=== PATIENT | female | born 1935 | race Caucasian/White ===

== ENCOUNTER 2017-06-04 07:53 | Inpatient (IN) | payer MEDICARE ==
[~2017-06-04] VITALS: Ht 154.9 cm; Wt 77.8 kg
[~2017-06-04 07:53] MED LIST: ALEN70TA5 PO; AMIT100T PO; BUME2TAB PO; CELE200C PO; CEPH-368 PO; CITA40TA5 PO; CLIN150C14 PO; FURO20TA3 PO; HYDR-3237 PO; LORA0.5T PO; MELO15TA24 PO; MULT-717 PO; POTA10TA11 PO; SENN8.6T98 PO; ZOLP5TAB6 PO
[2017-06-04] MEDS ORDERED: ALBUTEROL/IPRATROPIUM 2.5MG/0.5MG, 3 ML ONE ×3 (08:24→18:17)
[2017-06-04] MEDS ORDERED: methylPREDNISolone SOD SUCC 125 MG/2 ML IVP ONE (08:30)
[2017-06-04] MEDS ORDERED: SODIUM CHLORIDE FLUSH 10ML SYR IVF ONE (08:30)
[2017-06-04] MEDS ORDERED: ALBUTEROL/IPRATROPIUM 2.5MG/0.5MG, 3 ML NPPB ONE (08:30)
[2017-06-04 09:02] LABS: HEMATOCRIT 36.1 % (34.6-47.8); HEMOGLOBIN 11.6 g/dL (11.7-16.4); WHITE BLOOD COUNT 5.3 x10^3/uL (3.4-10)
[2017-06-04] MEDS ORDERED: BUME1TAB21 PO (09:08)
[2017-06-04] MEDS ORDERED: GABA300C10 PO (09:08)
[2017-06-04] MEDS ORDERED: DICY10CA3 PO (09:08)
[2017-06-04 09:10] LABS: BLOOD UREA NITROGEN 28 mg/dL (7-18)
[2017-06-04 09:15] LABS: ASPARTATE AMINO TRANSFERASE 28 U/L (15-37)
[2017-06-04] MEDS ORDERED: methylPREDNISolone SOD SUCC 125 MG/2 ML ONE (09:34)
[2017-06-04 11:03] LABS: RAPID INFLUENZA A POSITIVE (Negative)
[2017-06-04 11:04] LABS: RAPID INFLUENZA B Negative (Negative)
[2017-06-04] MEDS ORDERED: OSELTAMIVIR 75 MG CAPSULE PO ONE (12:00)
[2017-06-04] MEDS ORDERED: AZITHROMYCIN 500 MG in SODIUM CHLORIDE 0.9% 250 ML IV SCH (12:30)
[2017-06-04] MEDS ORDERED: hydrALAzine 20 MG/ML, 1ML IVPush PRN (13:00)
[2017-06-04] MEDS ORDERED: ACETAMINOPHEN 325 MG TABLET PO PRN (13:00)
[2017-06-04] MEDS ORDERED: ONDANSETRON 2MG/ML, 2ML IVPush PRN (13:00)
[2017-06-04] MEDS ORDERED: GUAIFENESIN 200 MG TABLET PO SCH (13:00)
[2017-06-04] MEDS: ALBUTEROL/IPRATROPIUM 2.5MG/0.5MG, 3 ML NPPB SCH ×2 (13:40→19:26)
[2017-06-04] MEDS ORDERED: FLUCONAZOLE 200 MG/100 ML 100 ML IV ONE (15:30)
[2017-06-04] MEDS: GUAIFENESIN ER 600 MG TABLET PO SCH ×2 (15:34→19:57)
[2017-06-04] MEDS: SODIUM CHLORIDE 0.9% 1,000 ML IV SCH (15:34)
[2017-06-04] MEDS: BENZONATATE 100 MG CAPSULE PO SCH ×2 (15:34→16:00)
[2017-06-04] MEDS: AZITHROMYCIN 500 MG in SODIUM CHLORIDE 0.9% 250 ML IV SCH (15:35)
[2017-06-04] MEDS: HEPARIN 5,000 UNITS/ML, 1ML SQ SCH (15:35)
[2017-06-04 16:59] VITALS: BP 122/69
[2017-06-04 19:31] VITALS: BP 134/61
[2017-06-04] MEDS: OSELTAMIVIR 75 MG CAPSULE PO SCH (19:57)
[2017-06-04 22:18] LABS: PATH.CAST-FLAG NOT PRESENT; SPERM-FLAG NOT PRESENT; SRC-FLAG NOT PRESENT; XTAL-FLAG NOT PRESENT; YLC-FLAG NOT PRESENT
[2017-06-04] MEDS: HYDROcodone/APAP 5/325 TABLET PO PRN (23:33)
[2017-06-05 01:24] VITALS: BP 128/57
[2017-06-05] MEDS: SODIUM CHLORIDE 0.9% 1,000 ML IV SCH ×2 (05:11→17:07)
[2017-06-05 06:26] LABS: BLOOD UREA NITROGEN 26 mg/dL (7-18)
[2017-06-05 06:30] LABS: ASPARTATE AMINO TRANSFERASE 19 U/L (15-37)
[2017-06-05 06:33] LABS: HEMATOCRIT 31.9 % (34.6-47.8); HEMOGLOBIN 10.3 g/dL (11.7-16.4); WHITE BLOOD COUNT 4.9 x10^3/uL (3.4-10)
[2017-06-05] MEDS: ALBUTEROL/IPRATROPIUM 2.5MG/0.5MG, 3 ML NPPB SCH ×4 (06:44→20:24)
[2017-06-05 07:22] VITALS: BP 150/69
[2017-06-05] MEDS: OSELTAMIVIR 75 MG CAPSULE PO SCH ×2 (09:33→21:22)
[2017-06-05] MEDS: GUAIFENESIN ER 600 MG TABLET PO SCH ×3 (09:33→21:23)
[2017-06-05] MEDS: HEPARIN 5,000 UNITS/ML, 1ML SQ SCH ×3 (09:36→17:01)
[2017-06-05 14:10] VITALS: BP 169/73
[2017-06-05] MEDS: HYDROcodone/APAP 5/325 TABLET PO PRN (17:01)
[2017-06-05] MEDS: ASA/APAP/ CAFFEINE TABLET PO PRN (17:01)
[2017-06-05] MEDS: AZITHROMYCIN 500 MG in SODIUM CHLORIDE 0.9% 250 ML IV SCH (17:01)
[2017-06-05 19:24] VITALS: BP 116/72
[2017-06-06] MEDS: HEPARIN 5,000 UNITS/ML, 1ML SQ SCH ×3 (00:56→16:30)
[2017-06-06] MEDS: ASA/APAP/ CAFFEINE TABLET PO PRN ×3 (00:59→16:30)
[2017-06-06 01:24] VITALS: BP 109/66
[2017-06-06 06:30] VITALS: BP 159/77
[2017-06-06] MEDS: ALBUTEROL/IPRATROPIUM 2.5MG/0.5MG, 3 ML NPPB SCH ×2 (07:00→10:00)
[2017-06-06 07:19] LABS: HEMATOCRIT 31.5 % (34.6-47.8); HEMOGLOBIN 10.3 g/dL (11.7-16.4); WHITE BLOOD COUNT 4.9 x10^3/uL (3.4-10)
[2017-06-06 07:34] LABS: BLOOD UREA NITROGEN 24 mg/dL (7-18)
[2017-06-06] MEDS: OSELTAMIVIR 75 MG CAPSULE PO SCH ×2 (08:16→20:53)
[2017-06-06] MEDS: SODIUM CHLORIDE 0.9% 1,000 ML IV SCH ×2 (08:16→20:53)
[2017-06-06] MEDS: GUAIFENESIN ER 600 MG TABLET PO SCH ×3 (08:16→20:53)
[2017-06-06] MEDS ORDERED: DIPHENHYDRAMINE 50 MG/ML, 1ML IVPush ONE (11:30)
[2017-06-06] MEDS ORDERED: PROCHLORPERAZINE 5 MG/ML, 2ML IV ONE (11:30)
[2017-06-06 12:08] VITALS: BP 183/81
[2017-06-06 14:25] VITALS: BP 148/68
[2017-06-06] MEDS ORDERED: AZITHROMYCIN 500 MG TABLET PO SCH (16:00)
[2017-06-06 18:54] VITALS: BP 159/78
[2017-06-06] MEDS: HYDROcodone/APAP 5/325 TABLET PO PRN (20:53)
[2017-06-07 00:28] VITALS: BP 138/66
[2017-06-07] MEDS: HEPARIN 5,000 UNITS/ML, 1ML SQ SCH ×2 (02:00→08:51)
[2017-06-07] MEDS ORDERED: ALBUTEROL/IPRATROPIUM 2.5MG/0.5MG, 3 ML NPPB PRN (07:00)
[2017-06-07 07:25] VITALS: BP 159/93
[2017-06-07] MEDS: OSELTAMIVIR 75 MG CAPSULE PO SCH (08:51)
[2017-06-07] MEDS: GUAIFENESIN ER 600 MG TABLET PO SCH (08:51)
[2017-06-07] MEDS: SODIUM CHLORIDE 0.9% 1,000 ML IV SCH (09:01)
== END 2017-06-07 11:07 | disposition left against medical advice (07) | DRG 193 ==
LOC: ED 11:03 → EDIP 11:58 → 4WST 14:38
PROVIDERS: ADMIT Internal Medicine; ATTEND Internal Medicine
DX: J10.08 Influenza due to other identified influenza virus with other specified pneumonia (principal); J96.01 Acute respiratory failure with hypoxia; N18.3 Chronic kidney disease, stage 3 (moderate); I12.9 Hypertensive chronic kidney disease with stage 1 through stage 4 chronic kidney disease, or unspecified chronic kidney disease; M81.0 Age-related osteoporosis without current pathological fracture; F32.9 Major depressive disorder, single episode, unspecified; J10.1 Influenza due to other identified influenza virus with other respiratory manifestations; J98.4 Other disorders of lung; Z53.21 Procedure and treatment not carried out due to patient leaving prior to being seen by health care provider; Z82.49 Family history of ischemic heart disease and other diseases of the circulatory system; Z90.49 Acquired absence of other specified parts of digestive tract; Z90.710 Acquired absence of both cervix and uterus; Z98.891 History of uterine scar from previous surgery; Z88.0 Allergy status to penicillin; Z88.6 Allergy status to analgesic agent; Z88.5 Allergy status to narcotic agent
CPT/HCPCS: 36415; 71010; 80048; 80053; 81001; 83605; 83880; 84439; 84443; 85025; 87040; 87086; 87400; 93005; 93306; 94640; 96374; J0456; J1644; J7620; J0360; J0780; J1200; J1450; J2930; J7030; J7050

== ENCOUNTER 2017-10-22 10:47 | Emergency (ER) | payer MEDICARE ==
[~2017-10-22] VITALS: Ht 154.9 cm; Wt 76.5 kg
[~2017-10-22 10:47] MED LIST changes: +BUME1TAB21 PO; +DICY10CA3 PO; +GABA300C10 PO
[2017-10-22 10:49] VITALS: BP 123/75
[2017-10-22 12:00] LABS: BASOPHILS # (AUTO) 0.06 x10^3/uL (0-0.1); BASOPHILS % (AUTO) 1 % (0-1); EOSINOPHILS # (AUTO) 0.61 x10^3/uL (0-0.4); EOSINOPHILS % (AUTO) 10 % (1-7); LYMPHOCYTES # (AUTO) 1.16 x10^3/uL (1-3.4); LYMPHOCYTES % (AUTO) 19 % (22-44); MD NO; MEAN CORPUSCULAR HEMOGLOBIN 25.8 pg (27.0-34.8); MEAN CORPUSCULAR HGB CONC 31.7 g/dL (32.4-35.8); MEAN CORPUSCULAR VOLUME 81.4 fL (80-100); MEAN PLATELET VOLUME 7.8 fL (7.4-10.4); MONOCYTES # (AUTO) 0.54 x10^3/uL (0.2-0.8); MONOCYTES % (AUTO) 9 % (2-9); NEUTROPHILS % (AUTO) 60 % (42-75); PLATELET COUNT 403 x10^3/uL (130-400); RED BLOOD COUNT 4.22 x10^6/uL (3.82-5.3); RED CELL DISTRIBUTION WIDTH 15.7 % (9.6-15.2)
[2017-10-22] MEDS ORDERED: KETOROLAC 30 MG/1 ML IM ONE (12:00)
[2017-10-22 12:13] LABS: ALBUMIN 3.1 g/dL (3.4-5.0); ANION GAP 7 mmol/L (5-15); CALCIUM 8.4 mg/dL (8.5-10.1); CHLORIDE 104 mmol/L (98-107)
[2017-10-22 12:18] LABS: ALANINE AMINOTRANSFERASE 19 U/L (12-78); ALKALINE PHOSPHATASE 93 U/L (45-117); BILIRUBIN,TOTAL 0.4 mg/dL (0.2-1.0); CREATININE 1.06 mg/dL (0.55-1.02); TOTAL PROTEIN 7.1 g/dL (6.4-8.2)
[2017-10-22] MEDS ORDERED: KETOROLAC 30 MG/1 ML ONE (12:30)
[2017-10-23] MEDS ORDERED: BUME2TAB PO (13:02)
[2017-10-23] MEDS ORDERED: CITA40TA12 PO (13:03)
[2017-10-23] MEDS ORDERED: AMIT100T PO (13:04)
[2017-10-23] MEDS ORDERED: CALC-112 PO (13:05)
[2017-10-23] MEDS ORDERED: CALC200T3 PO (13:05)
[2017-10-23] MEDS ORDERED: NAPR220C2 PO (13:06)
[2017-10-23] MEDS ORDERED: DOCU250C62 PO (13:06)
== END 2017-10-22 12:55 | disposition home or self-care (01) ==
LOC: ED 12:49
DX: G44.89 Other headache syndrome (principal); I10 Essential (primary) hypertension; Z90.49 Acquired absence of other specified parts of digestive tract; Z88.0 Allergy status to penicillin; Z88.5 Allergy status to narcotic agent; Z88.6 Allergy status to analgesic agent
CPT/HCPCS: 36415; 70450; 80053; 85025; 96372; 99285; J1885

== ENCOUNTER → 2017-11-29 | Outpatient (CLI) | payer MEDICARE ==
[~2017-11-29] MED LIST changes: +CALC-112 PO; +CALC200T3 PO; +CALC600T4 PO; +CITA40TA12 PO; +DIVA-68 PO; +DIVA500T2 PO; +DOCU250C62 PO; +METH4TAB2 PO; +NAPR220C2 PO; +SUMA6VIA SQ; +SUMA6VIA2 SC
== END ==
LOC: RAD 13:21
PROVIDERS: ATTEND Internal Medicine Critical Care Medicine
DX: Z02.9 Encounter for administrative examinations, unspecified (principal)

== ENCOUNTER → 2018-01-17 | Outpatient (CLI) | payer MEDICARE | END | disposition home or self-care (01) | LOC: PETCFH 08:40 | PROVIDERS: ATTEND Family Medicine | DX: R91.8 Other nonspecific abnormal finding of lung field (principal); K59.00 Constipation, unspecified; C79.89 Secondary malignant neoplasm of other specified sites; C80.1 Malignant (primary) neoplasm, unspecified; Z98.84 Bariatric surgery status | CPT/HCPCS: 74018; 78815; A9552 ==

== ENCOUNTER → 2018-01-18 | Outpatient (CLI) | payer MEDICARE | END | disposition home or self-care (01) | LOC: RAD 14:05 | PROVIDERS: ATTEND Internal Medicine | DX: D50.9 Iron deficiency anemia, unspecified (principal); C79.9 Secondary malignant neoplasm of unspecified site | CPT/HCPCS: 74018 ==

== ENCOUNTER → 2018-02-25 | Outpatient (CLI) | payer MEDICARE ==
[~2018-02-25] MED LIST changes: +DIVA-61 PO; -DIVA-68 PO
[2018-02-25 12:36] LABS: HCT (SEDRATE) 35.8 % (34.6-47.8)
== END | disposition home or self-care (01) ==
LOC: CFH 09:10
PROVIDERS: ATTEND Internal Medicine Critical Care Medicine
DX: J47.9 Bronchiectasis, uncomplicated (principal); R91.8 Other nonspecific abnormal finding of lung field
CPT/HCPCS: 36415; 71250; 82164; 83520; 85651; 86038; 86235; 86256; 86430

== ENCOUNTER → 2018-02-25 | Outpatient (CLI) | payer MEDICARE | END | disposition home or self-care (01) | LOC: LAB 10:15 | PROVIDERS: ATTEND Internal Medicine Critical Care Medicine | DX: Z02.9 Encounter for administrative examinations, unspecified (principal) ==

== ENCOUNTER → 2018-03-27 | Outpatient (CLI) | payer MEDICARE | END | disposition home or self-care (01) | LOC: CVU 12:21 | PROVIDERS: ATTEND Nurse Practitioner Family | DX: I07.1 Rheumatic tricuspid insufficiency (principal); I34.8 Other nonrheumatic mitral valve disorders; I35.8 Other nonrheumatic aortic valve disorders; J96.11 Chronic respiratory failure with hypoxia | CPT/HCPCS: 93306 ==

== ENCOUNTER → 2018-04-11 | Outpatient (CLI) | payer MEDICARE | END | disposition home or self-care (01) | LOC: RAD 09:32 | PROVIDERS: ATTEND Nurse Practitioner Family | DX: R13.10 Dysphagia, unspecified (principal) | CPT/HCPCS: 74230; 92611; G8996; G8997; G8998 ==

== ENCOUNTER → 2018-05-03 | Outpatient (CLI) | payer MEDICARE ==
[2018-05-03 11:16] LABS: CHOL/HDL RATIO 2.6; CHOLESTEROL, TOTAL 230 mg/dL (140-239); CREATININE 1.38 mg/dL (0.55-1.02); HDL CHOL % 38 % (28-40); HDL CHOLESTEROL (DIRECT) 87 mg/dL (40-60); LDL CHOLESTEROL,CALCULATED 132 mg/dL (54-169); LDL/HDL RATIO 1.5 (0.5-3.0); TRIGLYCERIDES 56 mg/dL (50-200); VLDL CHOLESTEROL 11 mg/dL (0-25)
== END | disposition home or self-care (01) ==
LOC: LAB 10:32
PROVIDERS: ATTEND Internal Medicine Interventional Cardiology
DX: I10 Essential (primary) hypertension (principal); E78.5 Hyperlipidemia, unspecified
CPT/HCPCS: 36415; 80061; 82565; 84520

== ENCOUNTER 2018-06-24 05:24 | Emergency (ER) | payer MEDICARE ==
[~2018-06-24] VITALS: Ht 152.4 cm; Wt 77.0 kg
[2018-06-24] MEDS ORDERED: MELO15TA24 PO (05:45)
[2018-06-24] MEDS ORDERED: norco (05:45)
[2018-06-24] MEDS ORDERED: NAPR-685 PO (05:45)
[2018-06-24] MEDS ORDERED: BACITRACIN ZINC OINT 500U/GM, 0.9 GM ONE (05:52)
[2018-06-24] MEDS ORDERED: DIPH,PERTUSS(ACELL),TET VAC/PF 0.5 ML IM-VACC ONE ×2 (05:53→06:00)
[2018-06-24] MEDS ORDERED: LIDODERM 5% PATCH TD ONE (06:00)
[2018-06-24] MEDS ORDERED: BACITRACIN ZINC OINT 500U/GM, 0.9 GM TP ONE (06:00)
[2018-06-24 07:02] VITALS: BP 150/69
== END 2018-06-24 08:07 | disposition home or self-care (01) ==
LOC: ED 05:59
DX: B02.9 Zoster without complications (principal); R91.1 Solitary pulmonary nodule; J44.9 Chronic obstructive pulmonary disease, unspecified; I11.9 Hypertensive heart disease without heart failure; Z99.81 Dependence on supplemental oxygen; Z88.6 Allergy status to analgesic agent; Z88.5 Allergy status to narcotic agent; Z88.0 Allergy status to penicillin; Z88.1 Allergy status to other antibiotic agents; Z79.899 Other long term (current) drug therapy; Z90.710 Acquired absence of both cervix and uterus; Z90.49 Acquired absence of other specified parts of digestive tract
CPT/HCPCS: 71046; 90471; 90715

== ENCOUNTER 2018-11-18 12:06 | Emergency (ER) | payer MEDICARE ==
[~2018-11-18] VITALS: Ht 124.5 cm; Wt 69.5 kg
[~2018-11-18 12:06] MED LIST changes: -ALEN70TA5 PO; +ALEN70TA6 PO; +NAPR-685 PO; +norco
[2018-11-18 12:32] VITALS: BP 144/52
== END 2018-11-18 14:11 | disposition home or self-care (01) ==
LOC: ED 14:05
DX: S61.210A Laceration without foreign body of right index finger without damage to nail, initial encounter (principal); S16.1XXA Strain of muscle, fascia and tendon at neck level, initial encounter; S09.90XA Unspecified injury of head, initial encounter; J44.9 Chronic obstructive pulmonary disease, unspecified; F17.210 Nicotine dependence, cigarettes, uncomplicated; Z85.01 Personal history of malignant neoplasm of esophagus; W01.0XXA Fall on same level from slipping, tripping and stumbling without subsequent striking against object, initial encounter; Y93.89 Activity, other specified; Y92.009 Unspecified place in unspecified non-institutional (private) residence as the place of occurrence of the external cause; Y99.8 Other external cause status
CPT/HCPCS: 70450; 72125; 99284

== ENCOUNTER 2019-05-26 13:54 | Inpatient (IN) | payer MEDICARE ==
[~2019-05-26] VITALS: Ht 154.9 cm; Wt 81.6 kg
[~2019-05-26 13:54] MED LIST changes: -BUME2TAB PO; +BUME2TAB3 PO
[2019-05-26] MEDS ORDERED: ATOR-2 PO (14:17)
[2019-05-26] MEDS ORDERED: CARV12.52 PO (14:17)
[2019-05-26] MEDS ORDERED: POTA20TA14 PO (14:17)
[2019-05-26] MEDS ORDERED: ALEN70TA6 PO (14:17)
[2019-05-26] MEDS ORDERED: HYDR-3237 PO (14:17)
[2019-05-26] MEDS ORDERED: ASPI-496 PO (14:17)
[2019-05-26] MEDS ORDERED: DILT-8 PO (14:17)
--- NOTE | 2019-05-26 14:38 | NUR ---
p tto ed for ble swelling x3 days. pt denies cp or pressure. recently diagnosed with "new hear condition" but cannot remember what it is called. pt connected to all monitors. afib 110s-140s. all other vss on baseline home o2 3lnc. no need expressed. Dr. Costa to bs for assessment. plan for dilt gtt and admit. iv established and labs drawn. awaiting results.
[2019-05-26] MEDS ORDERED: DILTIAZEM 5 MG/ML, 5ML ONE (14:48)
[2019-05-26] MEDS ORDERED: DILTIAZEM 5 MG/ML, 5ML IV ONE (15:00)
[2019-05-26] MEDS ORDERED: SODIUM CHLORIDE FLUSH 10ML SYR IVF ONE (15:00)
[2019-05-26] MEDS: DILTIAZEM 125 MG in SODIUM CHLORIDE 0.9% 100 ML IV SCH ×2 (15:03→19:24)
--- NOTE | 2019-05-26 15:05 | NUR ---
pt medicated per mar. hr improving. vss. no needs expressed. awaiting further orders.
[2019-05-26 15:08] LABS: ALANINE AMINOTRANSFERASE 59 U/L (12-78); ALBUMIN 2.7 g/dL (3.4-5.0); ANION GAP 1 mmol/L (5-15); CALCIUM 8.8 mg/dL (8.5-10.1); CHLORIDE 103 mmol/L (98-107); CREATININE 1.23 mg/dL (0.55-1.02)
[2019-05-26 15:11] LABS: BASOPHILS # (AUTO) 0.05 x10^3/uL (0-0.1); BASOPHILS % (AUTO) 1 % (0-1); EOSINOPHILS # (AUTO) 0.59 x10^3/uL (0-0.4); EOSINOPHILS % (AUTO) 7 % (1-7); LYMPHOCYTES # (AUTO) 1.03 x10^3/uL (1-3.4); LYMPHOCYTES % (AUTO) 13 % (22-44); MD NO; MEAN CORPUSCULAR HEMOGLOBIN 31.9 pg (27.0-34.8); MEAN CORPUSCULAR HGB CONC 31.7 g/dL (32.4-35.8); MEAN CORPUSCULAR VOLUME 100.5 fL (80-100); MEAN PLATELET VOLUME 8.7 fL (7.4-10.4); MONOCYTES # (AUTO) 0.62 x10^3/uL (0.2-0.8); MONOCYTES % (AUTO) 8 % (2-9); NEUTROPHILS # (AUTO) 5.72 x10^3/uL (1.8-6.8); NEUTROPHILS % (AUTO) 71 % (42-75); PLATELET COUNT 332 x10^3/uL (130-400); RED BLOOD COUNT 3.99 x10^6/uL (3.82-5.3); RED CELL DISTRIBUTION WIDTH 15.2 % (9.6-15.2)
[2019-05-26 15:23] LABS: BILIRUBIN,TOTAL 0.5 mg/dL (0.2-1.0)
--- NOTE | 2019-05-26 15:23 | NUR ---
PUREWICK PLACED FOR PT COMFORT. PT TOLERATED WELL AND IS THANKFUL. VSS. NO NEEDS EXPRESSED. CALL LIGHT WITHIN REACH.
[2019-05-26 15:24] LABS: ALKALINE PHOSPHATASE 155 U/L (45-117); TOTAL PROTEIN 6.8 g/dL (6.4-8.2); TROPONIN I < 0.015 ng/mL (0.000-0.045)
--- NOTE | 2019-05-26 15:26 | NUR ---
ALL RESULTS BACK AT THIS TIME. CHART UP FOR RECHECK.
--- NOTE | 2019-05-26 15:41 | NUR ---
PT/INR NOT RUNNING AT THIS TIME. LAB CALLED AND WILL BEGIN RUNNING SAMPLE SOON POSSIBLE. DR. ERNIQUEZ NOTIFIED.
[2019-05-26 15:51] LABS: INTERNATIONAL NORMALIZED RATIO 1.14 (0.93-1.1); PROTHROMBIN TIME 11.9 Seconds (9.6-11.5)
[2019-05-26] MEDS ORDERED: FUROSEMIDE 40 MG/4 ML ONE (16:04)
--- NOTE | 2019-05-26 16:10 | NUR ---
PT MEDICATED PER AUG. DR. GROVER TO BS FOR ASSESSMENT. PLAN TO ADMIT TELE.
[2019-05-26] MEDS ORDERED: ONDANSETRON 2MG/ML, 2ML IVPush PRN (16:30)
[2019-05-26] MEDS ORDERED: NITROGLYCERIN 0.4 MG/SPRAY SL PRN (16:30)
[2019-05-26] MEDS ORDERED: ONDANSETRON ODT 4 MG PO PRN (16:30)
[2019-05-26] MEDS ORDERED: NITROGLYCERIN 0.4 MG BOTTLE (25 TABS) SL PRN (16:30)
[2019-05-26] MEDS ORDERED: hydrALAzine 20 MG/ML, 1ML IVPush PRN (16:30)
[2019-05-26] MEDS ORDERED: HYDROmorphone 2 MG/ML, 1ML IVPush PRN (16:30)
[2019-05-26] MEDS ORDERED: FUROSEMIDE 40 MG/4 ML IV ONE (16:30)
--- NOTE | 2019-05-26 18:07 | NUR ---
REPORT TO LOUIS BHARDWAJ. PT READY FOR TRANSPORT.
[2019-05-26] MEDS ORDERED: DILTIAZEM 125 MG in SODIUM CHLORIDE 0.9% 100 ML IV SCH (18:30)
[2019-05-26 18:43] VITALS: BP 117/75
[2019-05-26] MEDS ORDERED: AMITRIPTYLINE 50 MG TABLET ONE (19:39)
[2019-05-26] MEDS: FUROSEMIDE 40 MG/4 ML IV SCH (20:00)
[2019-05-26] MEDS: HEPARIN 5,000 UNITS/ML, 1ML SQ SCH (20:00)
[2019-05-26] MEDS: CARVEDILOL 12.5 MG TABLET PO SCH (20:01)
[2019-05-26] MEDS: ZOLPIDEM 5MG TABLET PO SCH (20:01)
[2019-05-26] MEDS: ATORVASTATIN 80 MG TABLET PO SCH (20:01)
[2019-05-26] MEDS ORDERED: AMITRIPTYLINE 100 MG TABLET PO SCH (21:00)
[2019-05-26] MEDS: GABAPENTIN 100 MG CAPSULE PO SCH (21:05)
[2019-05-26 22:50] LABS: TROPONIN I < 0.015 ng/mL (0.000-0.045)
[2019-05-27 02:31] VITALS: BP 99/63
[2019-05-27] MEDS: HEPARIN 5,000 UNITS/ML, 1ML SQ SCH ×3 (03:43→20:50)
[2019-05-27] MEDS: ACETAMINOPHEN 325 MG TABLET PO PRN ×3 (03:52→19:29)
[2019-05-27 06:16] LABS: ANION GAP 4 mmol/L (5-15); CALCIUM 8.1 mg/dL (8.5-10.1); CHLORIDE 104 mmol/L (98-107); CREATININE 1.01 mg/dL (0.55-1.02)
[2019-05-27 06:21] LABS: TROPONIN I < 0.015 ng/mL (0.000-0.045)
[2019-05-27 06:31] LABS: BASOPHILS # (AUTO) 0.04 x10^3/uL (0-0.1); BASOPHILS % (AUTO) 1 % (0-1); EOSINOPHILS # (AUTO) 0.64 x10^3/uL (0-0.4); EOSINOPHILS % (AUTO) 9 % (1-7); LYMPHOCYTES # (AUTO) 1.18 x10^3/uL (1-3.4); LYMPHOCYTES % (AUTO) 16 % (22-44); MD NO; MEAN CORPUSCULAR HEMOGLOBIN 31.8 pg (27.0-34.8); MEAN CORPUSCULAR HGB CONC 31.8 g/dL (32.4-35.8); MEAN CORPUSCULAR VOLUME 100.2 fL (80-100); MEAN PLATELET VOLUME 8.5 fL (7.4-10.4); MONOCYTES # (AUTO) 0.81 x10^3/uL (0.2-0.8); MONOCYTES % (AUTO) 11 % (2-9); NEUTROPHILS % (AUTO) 65 % (42-75); PLATELET COUNT 277 x10^3/uL (130-400); RED BLOOD COUNT 3.32 x10^6/uL (3.82-5.3); RED CELL DISTRIBUTION WIDTH 14.9 % (9.6-15.2)
[2019-05-27 06:45] VITALS: BP 99/66
[2019-05-27] MEDS ORDERED: ASPIRIN 81 MG TABLET EC PO SCH (09:00)
[2019-05-27] MEDS ORDERED: DILTIAZEM 120 MG CAP.ER.24H PO SCH (09:00)
[2019-05-27] MEDS: FUROSEMIDE 40 MG/4 ML IV SCH ×3 (09:53→20:51)
[2019-05-27] MEDS: CARVEDILOL 12.5 MG TABLET PO SCH ×2 (09:53→20:50)
[2019-05-27] MEDS: GABAPENTIN 100 MG CAPSULE PO SCH ×2 (09:54→20:50)
[2019-05-27] MEDS: CITALOPRAM 20 MG TABLET PO SCH (09:54)
[2019-05-27] MEDS: ASPIRIN 325 MG TABLET EC PO SCH (09:54)
[2019-05-27] MEDS: POTASSIUM CHLORIDE 20 MEQ TAB.ER.PRT PO SCH (11:52)
[2019-05-27 14:46] VITALS: BP 111/74
[2019-05-27 19:34] VITALS: BP 117/73
[2019-05-27] MEDS: AMITRIPTYLINE 50 MG TABLET PO SCH (20:50)
[2019-05-27] MEDS: ATORVASTATIN 80 MG TABLET PO SCH (20:50)
[2019-05-27] MEDS: ZOLPIDEM 5MG TABLET PO SCH (20:50)
[2019-05-28 00:39] VITALS: BP 104/72
[2019-05-28] MEDS: ACETAMINOPHEN 325 MG TABLET PO PRN (01:30)
[2019-05-28] MEDS: HEPARIN 5,000 UNITS/ML, 1ML SQ SCH ×3 (04:34→20:51)
[2019-05-28 08:13] VITALS: BP 105/62
[2019-05-28 08:27] LABS: BASOPHILS # (AUTO) 0.01 x10^3/uL (0-0.1); BASOPHILS % (AUTO) 0 % (0-1); EOSINOPHILS # (AUTO) 0.44 x10^3/uL (0-0.4); EOSINOPHILS % (AUTO) 6 % (1-7); LYMPHOCYTES # (AUTO) 0.73 x10^3/uL (1-3.4); LYMPHOCYTES % (AUTO) 9 % (22-44); MD NO; MEAN CORPUSCULAR HEMOGLOBIN 31.5 pg (27.0-34.8); MEAN CORPUSCULAR HGB CONC 31.9 g/dL (32.4-35.8); MEAN CORPUSCULAR VOLUME 98.8 fL (80-100); MEAN PLATELET VOLUME 8.2 fL (7.4-10.4); MONOCYTES % (AUTO) 10 % (2-9); NEUTROPHILS # (AUTO) 6.13 x10^3/uL (1.8-6.8); NEUTROPHILS % (AUTO) 76 % (42-75); PLATELET COUNT 277 x10^3/uL (130-400); RED BLOOD COUNT 3.61 x10^6/uL (3.82-5.3); RED CELL DISTRIBUTION WIDTH 14.8 % (9.6-15.2)
[2019-05-28 08:38] LABS: ANION GAP 4 mmol/L (5-15); CALCIUM 8.3 mg/dL (8.5-10.1); CHLORIDE 103 mmol/L (98-107)
[2019-05-28 08:39] LABS: CREATININE 0.99 mg/dL (0.55-1.02)
[2019-05-28] MEDS: GABAPENTIN 100 MG CAPSULE PO SCH ×2 (09:04→20:50)
[2019-05-28] MEDS: CARVEDILOL 12.5 MG TABLET PO SCH ×2 (09:04→20:51)
[2019-05-28] MEDS: ASPIRIN 325 MG TABLET EC PO SCH (09:04)
[2019-05-28] MEDS: POTASSIUM CHLORIDE 20 MEQ TAB.ER.PRT PO SCH (09:04)
[2019-05-28] MEDS: CITALOPRAM 20 MG TABLET PO SCH (09:04)
[2019-05-28] MEDS: DILTIAZEM 120 MG CAP.ER.24H PO SCH (09:04)
[2019-05-28] MEDS: FUROSEMIDE 40 MG/4 ML IV SCH ×3 (09:05→20:51)
[2019-05-28] MEDS: HYDROcodone/APAP 5/325 TABLET PO PRN ×3 (09:15→20:50)
[2019-05-28 13:45] VITALS: BP 91/62
[2019-05-28 14:13] VITALS: BP 108/78
[2019-05-28 19:39] VITALS: BP 101/68
[2019-05-28] MEDS: AMITRIPTYLINE 50 MG TABLET PO SCH (20:50)
[2019-05-28] MEDS: ZOLPIDEM 5MG TABLET PO SCH (20:51)
[2019-05-28] MEDS: ATORVASTATIN 80 MG TABLET PO SCH (20:51)
[2019-05-29 00:27] VITALS: BP 117/72
[2019-05-29] MEDS: ASPIRIN 325 MG TABLET EC PO SCH (04:21)
[2019-05-29] MEDS: HYDROcodone/APAP 5/325 TABLET PO PRN ×4 (04:21→21:08)
[2019-05-29] MEDS: HEPARIN 5,000 UNITS/ML, 1ML SQ SCH (04:21)
[2019-05-29 04:56] LABS: BASOPHILS % (AUTO) 0 % (0-1); EOSINOPHILS # (AUTO) 0.58 x10^3/uL (0-0.4); EOSINOPHILS % (AUTO) 7 % (1-7); LYMPHOCYTES # (AUTO) 1.08 x10^3/uL (1-3.4); LYMPHOCYTES % (AUTO) 13 % (22-44); MD NO; MEAN CORPUSCULAR HEMOGLOBIN 31.8 pg (27.0-34.8); MEAN CORPUSCULAR HGB CONC 31.6 g/dL (32.4-35.8); MEAN CORPUSCULAR VOLUME 100.7 fL (80-100); MEAN PLATELET VOLUME 8.6 fL (7.4-10.4); MONOCYTES # (AUTO) 1.04 x10^3/uL (0.2-0.8); MONOCYTES % (AUTO) 13 % (2-9); NEUTROPHILS # (AUTO) 5.41 x10^3/uL (1.8-6.8); NEUTROPHILS % (AUTO) 67 % (42-75); PLATELET COUNT 285 x10^3/uL (130-400); RED BLOOD COUNT 3.68 x10^6/uL (3.82-5.3); RED CELL DISTRIBUTION WIDTH 15.1 % (9.6-15.2)
[2019-05-29 07:12] VITALS: BP 117/78
[2019-05-29] MEDS ORDERED: HEPARIN 5,000 UNITS/ML, 1ML IV ONE (07:30)
[2019-05-29] MEDS ORDERED: HEPARIN 5,000 UNITS/ML, 1ML IV PRN (07:30)
[2019-05-29 07:37] LABS: ANION GAP 6 mmol/L (5-15); CALCIUM 8.4 mg/dL (8.5-10.1); CHLORIDE 103 mmol/L (98-107); CREATININE 1.04 mg/dL (0.55-1.02)
[2019-05-29] MEDS: HEPARIN 25,000 UNITS/500ML PMX 500 ML IV PRN (08:35)
[2019-05-29] MEDS: DILTIAZEM 120 MG CAP.ER.24H PO SCH (08:39)
[2019-05-29] MEDS: CITALOPRAM 20 MG TABLET PO SCH (08:39)
[2019-05-29] MEDS: CARVEDILOL 12.5 MG TABLET PO SCH ×2 (08:39→21:08)
[2019-05-29] MEDS: GABAPENTIN 100 MG CAPSULE PO SCH ×2 (08:39→21:08)
[2019-05-29] MEDS: FUROSEMIDE 40 MG/4 ML IV SCH ×3 (08:40→21:07)
[2019-05-29] MEDS: POTASSIUM CHLORIDE 20 MEQ TAB.ER.PRT PO SCH (08:40)
[2019-05-29] MEDS: DIGOXIN 0.125 MG TABLET PO SCH (09:00)
--- NOTE | 2019-05-29 11:47 | NUR ---
REC CHOPPED/THIN LIQUIDS; ORANGE SHEET WITH DIET RECS AND SWALLOW STRATEGIES POSTED AT BEDSIDE. Addendum: 05/29/19 at 1147 by Kristi HOLMAN Amended: Links added.
[2019-05-29] MEDS: BUMETANIDE 1 MG TABLET PO SCH (11:53)
[2019-05-29 13:15] VITALS: BP 95/67
[2019-05-29 19:44] VITALS: BP 115/80
[2019-05-29] MEDS: ZOLPIDEM 5MG TABLET PO SCH (21:08)
[2019-05-29] MEDS: ATORVASTATIN 80 MG TABLET PO SCH (21:08)
[2019-05-29] MEDS: AMITRIPTYLINE 50 MG TABLET PO SCH (21:08)
[2019-05-30 02:41] VITALS: BP 131/82
[2019-05-30] MEDS: HYDROcodone/APAP 5/325 TABLET PO PRN ×3 (03:47→22:58)
[2019-05-30 04:54] LABS: BASOPHILS # (AUTO) 0.06 x10^3/uL (0-0.1); BASOPHILS % (AUTO) 1 % (0-1); EOSINOPHILS # (AUTO) 0.54 x10^3/uL (0-0.4); EOSINOPHILS % (AUTO) 6 % (1-7); LYMPHOCYTES # (AUTO) 0.92 x10^3/uL (1-3.4); LYMPHOCYTES % (AUTO) 10 % (22-44); MD NO; MEAN CORPUSCULAR HEMOGLOBIN 32.4 pg (27.0-34.8); MEAN CORPUSCULAR HGB CONC 32.4 g/dL (32.4-35.8); MEAN CORPUSCULAR VOLUME 99.9 fL (80-100); MEAN PLATELET VOLUME 8.5 fL (7.4-10.4); MONOCYTES # (AUTO) 0.97 x10^3/uL (0.2-0.8); MONOCYTES % (AUTO) 11 % (2-9); NEUTROPHILS # (AUTO) 6.46 x10^3/uL (1.8-6.8); NEUTROPHILS % (AUTO) 72 % (42-75); PLATELET COUNT 268 x10^3/uL (130-400); RED BLOOD COUNT 3.71 x10^6/uL (3.82-5.3); RED CELL DISTRIBUTION WIDTH 15.1 % (9.6-15.2)
[2019-05-30 05:03] LABS: ANION GAP 6 mmol/L (5-15); CALCIUM 8.5 mg/dL (8.5-10.1); CHLORIDE 101 mmol/L (98-107); CREATININE 0.95 mg/dL (0.55-1.02)
[2019-05-30] MEDS: HEPARIN 25,000 UNITS/500ML PMX 500 ML IV PRN (05:12)
[2019-05-30] MEDS: ASPIRIN 325 MG TABLET EC PO SCH (05:13)
[2019-05-30 07:57] VITALS: BP 122/86
[2019-05-30] MEDS: BUMETANIDE 1 MG TABLET PO SCH ×3 (08:14→20:45)
[2019-05-30] MEDS: CITALOPRAM 20 MG TABLET PO SCH (08:14)
[2019-05-30] MEDS: GABAPENTIN 100 MG CAPSULE PO SCH ×2 (08:14→20:45)
[2019-05-30] MEDS: DILTIAZEM 120 MG CAP.ER.24H PO SCH (08:14)
[2019-05-30] MEDS: CARVEDILOL 12.5 MG TABLET PO SCH (08:14)
[2019-05-30] MEDS: DIGOXIN 0.125 MG TABLET PO SCH (08:15)
[2019-05-30] MEDS ORDERED: BUMETANIDE 1 MG TABLET PO SCH (11:30)
[2019-05-30] MEDS: METOPROLOL TARTRATE 25 MG TABLET PO SCH ×2 (11:40→22:50)
[2019-05-30 13:20] VITALS: BP 76/50
[2019-05-30 20:14] VITALS: BP_SYST 100; BP_SYST 85; BP_DIAS 60; BP_DIAS 62
[2019-05-30] MEDS: ACETAMINOPHEN 325 MG TABLET PO PRN (20:44)
[2019-05-30] MEDS: AMITRIPTYLINE 50 MG TABLET PO SCH (20:45)
[2019-05-30] MEDS: ATORVASTATIN 80 MG TABLET PO SCH (20:45)
[2019-05-30 22:26] VITALS: BP_SYST 97; BP_SYST 99; BP_DIAS 64; BP_DIAS 66
[2019-05-30] MEDS: ZOLPIDEM 5MG TABLET PO SCH (22:58)
[2019-05-31 02:44] VITALS: BP 113/76
[2019-05-31 04:12] VITALS: BP 99/72
[2019-05-31] MEDS: HYDROcodone/APAP 5/325 TABLET PO PRN ×3 (04:21→10:27)
[2019-05-31 05:09] LABS: ANION GAP 6 mmol/L (5-15); CALCIUM 8.5 mg/dL (8.5-10.1); CHLORIDE 101 mmol/L (98-107); CREATININE 1.14 mg/dL (0.55-1.02)
[2019-05-31] MEDS: ASPIRIN 325 MG TABLET EC PO SCH (05:53)
[2019-05-31] MEDS: METOPROLOL TARTRATE 25 MG TABLET PO SCH ×2 (05:54→21:00)
[2019-05-31 07:59] VITALS: BP 113/78
[2019-05-31] MEDS: DILTIAZEM 120 MG CAP.ER.24H PO SCH (09:30)
[2019-05-31] MEDS: CITALOPRAM 20 MG TABLET PO SCH (09:31)
[2019-05-31] MEDS: GABAPENTIN 100 MG CAPSULE PO SCH ×2 (09:31→21:50)
[2019-05-31] MEDS: DIGOXIN 0.125 MG TABLET PO SCH (09:31)
[2019-05-31] MEDS: BUMETANIDE 1 MG TABLET PO SCH ×3 (09:32→21:00)
[2019-05-31] MEDS: HEPARIN 25,000 UNITS/500ML PMX 500 ML IV PRN (09:39)
[2019-05-31 14:00] VITALS: BP 90/57
[2019-05-31] MEDS: POLYETHYLENE GLYCOL 17 GM PACKET PO SCH (15:11)
[2019-05-31] MEDS: APIXABAN 5 MG TABLET PO SCH ×2 (15:11→21:50)
[2019-05-31] MEDS ORDERED: METOPROLOL TARTRATE 25 MG TABLET PO SCH (16:00)
[2019-05-31 20:48] VITALS: BP 95/64
[2019-05-31] MEDS: ZOLPIDEM 5MG TABLET PO SCH (21:00)
[2019-05-31] MEDS: DOCUSATE 100 MG CAPSULE PO SCH (21:49)
[2019-05-31] MEDS: ATORVASTATIN 80 MG TABLET PO SCH (21:50)
[2019-05-31] MEDS: AMITRIPTYLINE 50 MG TABLET PO SCH (21:50)
[2019-06-01] MEDS: HYDROcodone/APAP 5/325 TABLET PO PRN ×6 (00:09→22:52)
[2019-06-01 01:46] VITALS: BP 98/64
[2019-06-01 05:40] LABS: ANION GAP 6 mmol/L (5-15); CALCIUM 8.3 mg/dL (8.5-10.1); CHLORIDE 101 mmol/L (98-107)
[2019-06-01 05:43] LABS: CREATININE 1.44 mg/dL (0.55-1.02)
[2019-06-01] MEDS: ASPIRIN 325 MG TABLET EC PO SCH (05:45)
[2019-06-01] MEDS: METOPROLOL TARTRATE 25 MG TABLET PO SCH ×3 (09:00→21:31)
[2019-06-01 09:22] VITALS: BP 91/64
[2019-06-01] MEDS: BUMETANIDE 1 MG TABLET PO SCH ×3 (09:26→21:30)
[2019-06-01] MEDS: POLYETHYLENE GLYCOL 17 GM PACKET PO SCH (09:28)
[2019-06-01] MEDS: DIGOXIN 0.125 MG TABLET PO SCH (09:28)
[2019-06-01] MEDS: DILTIAZEM 120 MG CAP.ER.24H PO SCH (09:28)
[2019-06-01] MEDS: GABAPENTIN 100 MG CAPSULE PO SCH ×2 (09:28→21:31)
[2019-06-01] MEDS: APIXABAN 5 MG TABLET PO SCH ×2 (09:28→21:31)
[2019-06-01] MEDS: DOCUSATE 100 MG CAPSULE PO SCH ×2 (09:28→21:31)
[2019-06-01] MEDS: CITALOPRAM 20 MG TABLET PO SCH (09:28)
[2019-06-01 13:01] LABS: CULTURE INDICATED? YES; MICROSCOPIC INDICATED
[2019-06-01 14:37] VITALS: BP 87/51
[2019-06-01] MEDS: CEFTRIAXONE PMX 1GM/50ML 50 ML IV SCH (15:52)
[2019-06-01 19:56] VITALS: BP 116/76
[2019-06-01] MEDS: AMITRIPTYLINE 50 MG TABLET PO SCH (21:31)
[2019-06-01] MEDS: ATORVASTATIN 80 MG TABLET PO SCH (21:32)
[2019-06-01] MEDS: ZOLPIDEM 5MG TABLET PO SCH (21:35)
[2019-06-02 01:31] VITALS: BP 102/66
[2019-06-02 05:35] LABS: BASOPHILS # (AUTO) 0.03 x10^3/uL (0-0.1); BASOPHILS % (AUTO) 0 % (0-1); EOSINOPHILS # (AUTO) 0.45 x10^3/uL (0-0.4); EOSINOPHILS % (AUTO) 6 % (1-7); LYMPHOCYTES # (AUTO) 0.75 x10^3/uL (1-3.4); LYMPHOCYTES % (AUTO) 10 % (22-44); MD NO; MEAN CORPUSCULAR HEMOGLOBIN 31.3 pg (27.0-34.8); MEAN CORPUSCULAR HGB CONC 31.5 g/dL (32.4-35.8); MEAN CORPUSCULAR VOLUME 99.4 fL (80-100); MEAN PLATELET VOLUME 8.8 fL (7.4-10.4); MONOCYTES # (AUTO) 0.99 x10^3/uL (0.2-0.8); MONOCYTES % (AUTO) 13 % (2-9); NEUTROPHILS # (AUTO) 5.38 x10^3/uL (1.8-6.8); NEUTROPHILS % (AUTO) 71 % (42-75); PLATELET COUNT 266 x10^3/uL (130-400); RED BLOOD COUNT 3.44 x10^6/uL (3.82-5.3); RED CELL DISTRIBUTION WIDTH 14.6 % (9.6-15.2)
[2019-06-02 05:44] LABS: ANION GAP 4 mmol/L (5-15); CALCIUM 8.3 mg/dL (8.5-10.1); CHLORIDE 102 mmol/L (98-107); CREATININE 1.29 mg/dL (0.55-1.02)
[2019-06-02] MEDS: ASPIRIN 325 MG TABLET EC PO SCH (06:00)
[2019-06-02 07:49] VITALS: BP 133/76
[2019-06-02] MEDS: APIXABAN 5 MG TABLET PO SCH ×2 (09:17→21:00)
[2019-06-02] MEDS ORDERED: MAGNESIUM HYDROXIDE 8%, 30ML UDC PO ONE (09:30)
[2019-06-02] MEDS: BUMETANIDE 1 MG TABLET PO SCH ×3 (09:38→22:03)
[2019-06-02] MEDS: METOPROLOL TARTRATE 25 MG TABLET PO SCH ×3 (09:39→22:04)
[2019-06-02] MEDS: HYDROcodone/APAP 5/325 TABLET PO PRN (09:39)
[2019-06-02] MEDS: GABAPENTIN 100 MG CAPSULE PO SCH ×2 (09:39→22:03)
[2019-06-02] MEDS: DILTIAZEM 120 MG CAP.ER.24H PO SCH (09:39)
[2019-06-02] MEDS: CITALOPRAM 20 MG TABLET PO SCH (09:39)
[2019-06-02] MEDS: DOCUSATE 100 MG CAPSULE PO SCH ×2 (09:39→22:03)
[2019-06-02] MEDS: POLYETHYLENE GLYCOL 17 GM PACKET PO SCH (09:40)
[2019-06-02] MEDS: DIGOXIN 0.125 MG TABLET PO SCH (09:48)
[2019-06-02] MEDS ORDERED: BISACODYL 10 MG SUPP PR PRN (13:00)
[2019-06-02 13:14] VITALS: BP 115/71
[2019-06-02 15:23] VITALS: BP 108/69
[2019-06-02] MEDS: CEFTRIAXONE PMX 1GM/50ML 50 ML IV SCH (15:25)
[2019-06-02] MEDS: ACETAMINOPHEN 325 MG TABLET PO PRN (17:17)
[2019-06-02 19:17] VITALS: BP 104/61
[2019-06-02] MEDS: ZOLPIDEM 5MG TABLET PO SCH (21:00)
[2019-06-02] MEDS: AMITRIPTYLINE 50 MG TABLET PO SCH (22:03)
[2019-06-02] MEDS: ATORVASTATIN 80 MG TABLET PO SCH (22:08)
[2019-06-03 01:15] VITALS: BP 100/66
[2019-06-03 05:55] LABS: ANION GAP 4 mmol/L (5-15); CALCIUM 8.4 mg/dL (8.5-10.1); CHLORIDE 101 mmol/L (98-107)
[2019-06-03 05:57] LABS: CREATININE 1.11 mg/dL (0.55-1.02)
[2019-06-03 06:06] LABS: BASOPHILS # (AUTO) 0.04 x10^3/uL (0-0.1); BASOPHILS % (AUTO) 1 % (0-1); EOSINOPHILS # (AUTO) 0.48 x10^3/uL (0-0.4); EOSINOPHILS % (AUTO) 7 % (1-7); LYMPHOCYTES # (AUTO) 0.89 x10^3/uL (1-3.4); LYMPHOCYTES % (AUTO) 13 % (22-44); MD NO; MEAN CORPUSCULAR HEMOGLOBIN 31.2 pg (27.0-34.8); MEAN CORPUSCULAR HGB CONC 31.3 g/dL (32.4-35.8); MEAN CORPUSCULAR VOLUME 99.5 fL (80-100); MEAN PLATELET VOLUME 8.7 fL (7.4-10.4); MONOCYTES # (AUTO) 0.94 x10^3/uL (0.2-0.8); MONOCYTES % (AUTO) 14 % (2-9); NEUTROPHILS # (AUTO) 4.37 x10^3/uL (1.8-6.8); NEUTROPHILS % (AUTO) 65 % (42-75); PLATELET COUNT 270 x10^3/uL (130-400); RED BLOOD COUNT 3.29 x10^6/uL (3.82-5.3); RED CELL DISTRIBUTION WIDTH 14.5 % (9.6-15.2)
[2019-06-03] MEDS: ASPIRIN 325 MG TABLET EC PO SCH (06:15)
[2019-06-03 08:29] VITALS: BP 109/66
[2019-06-03] MEDS ORDERED: BISACODYL 10 MG SUPP PR PRN (08:30)
[2019-06-03] MEDS: CITALOPRAM 20 MG TABLET PO SCH (08:32)
[2019-06-03] MEDS: METOPROLOL TARTRATE 25 MG TABLET PO SCH (08:33)
[2019-06-03] MEDS: GABAPENTIN 100 MG CAPSULE PO SCH ×2 (08:33→22:52)
[2019-06-03] MEDS: DILTIAZEM 120 MG CAP.ER.24H PO SCH (08:33)
[2019-06-03] MEDS: DOCUSATE 100 MG CAPSULE PO SCH ×2 (08:33→22:51)
[2019-06-03] MEDS: BUMETANIDE 1 MG TABLET PO SCH ×3 (08:33→22:50)
[2019-06-03] MEDS: DIGOXIN 0.125 MG TABLET PO SCH (08:33)
[2019-06-03] MEDS: POLYETHYLENE GLYCOL 17 GM PACKET PO SCH (08:34)
[2019-06-03] MEDS: ACETAMINOPHEN 325 MG TABLET PO PRN (08:34)
[2019-06-03 11:17] VITALS: BP 107/69
[2019-06-03] MEDS: METOPROLOL SUCCINATE 100 MG TAB.ER.24H PO SCH (11:18)
[2019-06-03 15:07] VITALS: BP 93/64
[2019-06-03] MEDS: CEFTRIAXONE PMX 1GM/50ML 50 ML IV SCH (15:09)
[2019-06-03 19:15] VITALS: BP 125/74
[2019-06-03] MEDS ORDERED: BUPIVACAINE/PF 0.25% ONE (19:50)
[2019-06-03] MEDS ORDERED: LIDOCAINE 1%-EPI 1:100K, 20ML ONE (19:50)
[2019-06-03] MEDS ORDERED: EPINEPHRINE 1 MG/ML, 1ML ONE (19:50)
[2019-06-03] MEDS ORDERED: PROPOFOL 10 MG/ML, 20ML ONE (20:15)
[2019-06-03] MEDS ORDERED: FENTANYL PF 100 MCG/2ML ONE (20:16)
[2019-06-03] MEDS ORDERED: MIDAZOLAM 1 MG/ML, 2ML ONE (20:17)
[2019-06-03] MEDS ORDERED: HYDROcodone/APAP 7.5-325MG/15ML UDC PO PRN (21:00)
[2019-06-03] MEDS ORDERED: FENTANYL PF 100 MCG/2ML IV PRN (21:00)
[2019-06-03] MEDS ORDERED: hydrALAzine 20 MG/ML, 1ML IV PRN (21:00)
[2019-06-03] MEDS ORDERED: HYDROmorphone 2 MG/ML, 1ML IVPush PRN (21:00)
[2019-06-03] MEDS ORDERED: ONDANSETRON 2MG/ML, 2ML IV PRN (21:00)
[2019-06-03] MEDS ORDERED: LABETALOL 5MG/ML, 20ML IV PRN (21:00)
[2019-06-03] MEDS ORDERED: HYDROcodone/APAP 7.5-325MG/15ML UDC ONE (21:16)
[2019-06-03 22:44] VITALS: BP 121/80
[2019-06-03] MEDS: AMITRIPTYLINE 50 MG TABLET PO SCH (22:48)
[2019-06-03] MEDS: ATORVASTATIN 80 MG TABLET PO SCH (22:52)
[2019-06-03] MEDS: ZOLPIDEM 5MG TABLET PO SCH (23:45)
[2019-06-04 01:56] VITALS: BP 109/63
[2019-06-04] MEDS: ACETAMINOPHEN 325 MG TABLET PO PRN ×2 (02:10→15:33)
[2019-06-04 05:40] LABS: ANION GAP 4 mmol/L (5-15); CALCIUM 8.5 mg/dL (8.5-10.1); CHLORIDE 100 mmol/L (98-107)
[2019-06-04 05:42] LABS: BASOPHILS # (AUTO) 0.03 x10^3/uL (0-0.1); BASOPHILS % (AUTO) 0 % (0-1); EOSINOPHILS # (AUTO) 0.38 x10^3/uL (0-0.4); EOSINOPHILS % (AUTO) 4 % (1-7); LYMPHOCYTES # (AUTO) 0.75 x10^3/uL (1-3.4); LYMPHOCYTES % (AUTO) 8 % (22-44); MD NO; MEAN CORPUSCULAR HEMOGLOBIN 31.3 pg (27.0-34.8); MEAN CORPUSCULAR HGB CONC 31.6 g/dL (32.4-35.8); MEAN CORPUSCULAR VOLUME 99.2 fL (80-100); MEAN PLATELET VOLUME 8.1 fL (7.4-10.4); MONOCYTES # (AUTO) 1.25 x10^3/uL (0.2-0.8); MONOCYTES % (AUTO) 13 % (2-9); NEUTROPHILS # (AUTO) 7.05 x10^3/uL (1.8-6.8); NEUTROPHILS % (AUTO) 75 % (42-75); PLATELET COUNT 316 x10^3/uL (130-400); RED CELL DISTRIBUTION WIDTH 14.3 % (9.6-15.2)
[2019-06-04 05:43] LABS: CREATININE 0.98 mg/dL (0.55-1.02)
[2019-06-04] MEDS: ASPIRIN 325 MG TABLET EC PO SCH (06:09)
[2019-06-04] MEDS: METOPROLOL SUCCINATE 100 MG TAB.ER.24H PO SCH (06:09)
[2019-06-04] MEDS: FUROSEMIDE 100 MG/10 ML IV SCH ×2 (09:00→17:05)
[2019-06-04] MEDS ORDERED: FUROSEMIDE 20 MG/2 ML ONE (09:07)
[2019-06-04] MEDS ORDERED: FUROSEMIDE 40 MG/4 ML ONE (09:07)
[2019-06-04] MEDS: DILTIAZEM 240 MG CAP.ER.24H PO SCH (09:13)
[2019-06-04] MEDS: DIGOXIN 0.125 MG TABLET PO SCH (09:14)
[2019-06-04] MEDS: CHLORHEXIDINE 15 ML UDC MM SCH ×2 (09:14→22:07)
[2019-06-04] MEDS: CITALOPRAM 20 MG TABLET PO SCH (09:15)
[2019-06-04] MEDS: DOCUSATE 100 MG CAPSULE PO SCH ×2 (09:15→22:07)
[2019-06-04 09:18] VITALS: BP 131/79
[2019-06-04] MEDS: POLYETHYLENE GLYCOL 17 GM PACKET PO SCH (09:23)
[2019-06-04] MEDS: GABAPENTIN 100 MG CAPSULE PO SCH ×2 (09:23→22:07)
[2019-06-04 14:14] VITALS: BP 145/84
[2019-06-04] MEDS: CEFTRIAXONE PMX 1GM/50ML 50 ML IV SCH (15:23)
[2019-06-04 18:31] VITALS: BP 92/57
[2019-06-04] MEDS: ZOLPIDEM 5MG TABLET PO SCH (22:07)
[2019-06-04] MEDS: ATORVASTATIN 80 MG TABLET PO SCH (22:07)
[2019-06-04] MEDS: AMITRIPTYLINE 50 MG TABLET PO SCH (22:07)
[2019-06-05 01:22] VITALS: BP_SYST 89; BP_SYST 93; BP_DIAS 58; BP_DIAS 60
[2019-06-05 05:22] LABS: ANION GAP 3 mmol/L (5-15); CALCIUM 8.4 mg/dL (8.5-10.1); CHLORIDE 100 mmol/L (98-107); CREATININE 0.95 mg/dL (0.55-1.02)
[2019-06-05 05:34] LABS: BASOPHILS # (AUTO) 0.03 x10^3/uL (0-0.1); BASOPHILS % (AUTO) 0 % (0-1); EOSINOPHILS # (AUTO) 0.62 x10^3/uL (0-0.4); EOSINOPHILS % (AUTO) 8 % (1-7); LYMPHOCYTES % (AUTO) 13 % (22-44); MD NO; MEAN CORPUSCULAR HEMOGLOBIN 31.8 pg (27.0-34.8); MEAN CORPUSCULAR HGB CONC 31.8 g/dL (32.4-35.8); MEAN CORPUSCULAR VOLUME 100.1 fL (80-100); MEAN PLATELET VOLUME 8.2 fL (7.4-10.4); MONOCYTES # (AUTO) 1.19 x10^3/uL (0.2-0.8); MONOCYTES % (AUTO) 16 % (2-9); NEUTROPHILS # (AUTO) 4.71 x10^3/uL (1.8-6.8); NEUTROPHILS % (AUTO) 62 % (42-75); PLATELET COUNT 330 x10^3/uL (130-400); RED BLOOD COUNT 3.72 x10^6/uL (3.82-5.3); RED CELL DISTRIBUTION WIDTH 14.4 % (9.6-15.2)
[2019-06-05 06:04] VITALS: BP 100/68
[2019-06-05] MEDS: METOPROLOL SUCCINATE 100 MG TAB.ER.24H PO SCH (06:06)
[2019-06-05] MEDS: ASPIRIN 325 MG TABLET EC PO SCH (06:06)
[2019-06-05] MEDS: FUROSEMIDE 100 MG/10 ML IV SCH (09:00)
[2019-06-05] MEDS: DOCUSATE 100 MG CAPSULE PO SCH ×2 (09:00→20:50)
[2019-06-05] MEDS ORDERED: FUROSEMIDE 40 MG/4 ML ONE (10:47)
[2019-06-05] MEDS ORDERED: FUROSEMIDE 20 MG/2 ML ONE (10:47)
[2019-06-05] MEDS: DIGOXIN 0.125 MG TABLET PO SCH (10:58)
[2019-06-05] MEDS: CITALOPRAM 20 MG TABLET PO SCH (10:58)
[2019-06-05] MEDS: GABAPENTIN 100 MG CAPSULE PO SCH ×2 (10:58→20:51)
[2019-06-05] MEDS: DILTIAZEM 240 MG CAP.ER.24H PO SCH (10:58)
[2019-06-05] MEDS: CHLORHEXIDINE 15 ML UDC MM SCH ×2 (10:59→20:50)
[2019-06-05] MEDS: POLYETHYLENE GLYCOL 17 GM PACKET PO SCH (10:59)
[2019-06-05 13:59] VITALS: BP 98/67
[2019-06-05] MEDS: ACETAMINOPHEN 325 MG TABLET PO PRN ×2 (15:08→20:50)
[2019-06-05] MEDS: CEFTRIAXONE PMX 1GM/50ML 50 ML IV SCH (15:15)
[2019-06-05] MEDS: FUROSEMIDE 40 MG/4 ML IV SCH (17:00)
[2019-06-05 19:58] VITALS: BP 102/63
[2019-06-05] MEDS: ATORVASTATIN 80 MG TABLET PO SCH (20:50)
[2019-06-05] MEDS: AMITRIPTYLINE 50 MG TABLET PO SCH (20:50)
[2019-06-05] MEDS: ZOLPIDEM 5MG TABLET PO SCH (20:51)
[2019-06-06] VITALS (7 sets, daily range): BP systolic 90–114; BP diastolic 59–72
[2019-06-06] MEDS: ASPIRIN 325 MG TABLET EC PO SCH (05:11)
[2019-06-06] MEDS: METOPROLOL SUCCINATE 100 MG TAB.ER.24H PO SCH (05:12)
[2019-06-06 05:14] LABS: BASOPHILS # (AUTO) 0.03 x10^3/uL (0-0.1); BASOPHILS % (AUTO) 0 % (0-1); EOSINOPHILS # (AUTO) 0.64 x10^3/uL (0-0.4); EOSINOPHILS % (AUTO) 9 % (1-7); LYMPHOCYTES # (AUTO) 1.14 x10^3/uL (1-3.4); LYMPHOCYTES % (AUTO) 16 % (22-44); MD NO; MEAN CORPUSCULAR HEMOGLOBIN 31.6 pg (27.0-34.8); MEAN CORPUSCULAR HGB CONC 31.8 g/dL (32.4-35.8); MEAN CORPUSCULAR VOLUME 99.4 fL (80-100); MEAN PLATELET VOLUME 8.2 fL (7.4-10.4); MONOCYTES # (AUTO) 1.17 x10^3/uL (0.2-0.8); MONOCYTES % (AUTO) 16 % (2-9); NEUTROPHILS # (AUTO) 4.17 x10^3/uL (1.8-6.8); NEUTROPHILS % (AUTO) 58 % (42-75); PLATELET COUNT 303 x10^3/uL (130-400); RED BLOOD COUNT 3.36 x10^6/uL (3.82-5.3); RED CELL DISTRIBUTION WIDTH 13.9 % (9.6-15.2)
[2019-06-06 05:26] LABS: ANION GAP 3 mmol/L (5-15); CALCIUM 8.2 mg/dL (8.5-10.1); CHLORIDE 100 mmol/L (98-107)
[2019-06-06 05:27] LABS: CREATININE 0.89 mg/dL (0.55-1.02)
[2019-06-06] MEDS: POLYETHYLENE GLYCOL 17 GM PACKET PO SCH (09:00)
[2019-06-06] MEDS: CHLORHEXIDINE 15 ML UDC MM SCH ×2 (09:00→21:20)
[2019-06-06] MEDS: DOCUSATE 100 MG CAPSULE PO SCH ×2 (09:00→21:18)
[2019-06-06] MEDS: ACETAMINOPHEN 325 MG TABLET PO PRN ×2 (11:25→14:57)
[2019-06-06] MEDS: CITALOPRAM 20 MG TABLET PO SCH (11:26)
[2019-06-06] MEDS: GABAPENTIN 100 MG CAPSULE PO SCH ×2 (11:26→21:18)
[2019-06-06] MEDS: DILTIAZEM 240 MG CAP.ER.24H PO SCH (11:26)
[2019-06-06] MEDS: DIGOXIN 0.125 MG TABLET PO SCH (11:28)
[2019-06-06] MEDS: FUROSEMIDE 40 MG/4 ML IV SCH (11:35)
[2019-06-06] MEDS ORDERED: POTASSIUM CHLORIDE 20 MEQ TAB.ER.PRT PO ONE (14:30)
[2019-06-06] MEDS: CEFTRIAXONE PMX 1GM/50ML 50 ML IV SCH (18:01)
[2019-06-06] MEDS: BUMETANIDE 1 MG TABLET PO SCH ×3 (18:01→21:19)
[2019-06-06] MEDS: APIXABAN 5 MG TABLET PO SCH (21:17)
[2019-06-06] MEDS: AMITRIPTYLINE 50 MG TABLET PO SCH (21:17)
[2019-06-06] MEDS: ATORVASTATIN 80 MG TABLET PO SCH (21:18)
[2019-06-06] MEDS: ZOLPIDEM 5MG TABLET PO SCH (21:19)
[2019-06-07 01:15] VITALS: BP 119/80
[2019-06-07 04:55] LABS: BASOPHILS # (AUTO) 0.03 x10^3/uL (0-0.1); BASOPHILS % (AUTO) 0 % (0-1); EOSINOPHILS # (AUTO) 0.66 x10^3/uL (0-0.4); EOSINOPHILS % (AUTO) 10 % (1-7); LYMPHOCYTES # (AUTO) 1.07 x10^3/uL (1-3.4); LYMPHOCYTES % (AUTO) 16 % (22-44); MD NO; MEAN CORPUSCULAR HEMOGLOBIN 31.3 pg (27.0-34.8); MEAN CORPUSCULAR HGB CONC 31.5 g/dL (32.4-35.8); MEAN CORPUSCULAR VOLUME 99.5 fL (80-100); MONOCYTES # (AUTO) 0.89 x10^3/uL (0.2-0.8); MONOCYTES % (AUTO) 14 % (2-9); NEUTROPHILS # (AUTO) 3.88 x10^3/uL (1.8-6.8); NEUTROPHILS % (AUTO) 60 % (42-75); PLATELET COUNT 302 x10^3/uL (130-400); RED BLOOD COUNT 3.42 x10^6/uL (3.82-5.3); RED CELL DISTRIBUTION WIDTH 14.3 % (9.6-15.2)
[2019-06-07 05:05] LABS: ANION GAP 3 mmol/L (5-15); CALCIUM 8.5 mg/dL (8.5-10.1); CHLORIDE 101 mmol/L (98-107); CREATININE 0.82 mg/dL (0.55-1.02)
[2019-06-07 05:12] VITALS: BP 105/71
[2019-06-07] MEDS: ASPIRIN 325 MG TABLET EC PO SCH (05:16)
[2019-06-07] MEDS: METOPROLOL SUCCINATE 100 MG TAB.ER.24H PO SCH (05:16)
[2019-06-07] MEDS: HYDROcodone/APAP 5/325 TABLET PO PRN ×3 (05:17→17:47)
[2019-06-07 08:30] VITALS: BP 104/67
[2019-06-07] MEDS: POLYETHYLENE GLYCOL 17 GM PACKET PO SCH ×2 (09:00→13:12)
[2019-06-07] MEDS: CHLORHEXIDINE 15 ML UDC MM SCH ×2 (10:23→20:44)
[2019-06-07] MEDS: CITALOPRAM 20 MG TABLET PO SCH (10:23)
[2019-06-07] MEDS: BUMETANIDE 1 MG TABLET PO SCH ×3 (10:24→20:45)
[2019-06-07] MEDS: GABAPENTIN 100 MG CAPSULE PO SCH ×2 (10:25→20:46)
[2019-06-07] MEDS: DOCUSATE 100 MG CAPSULE PO SCH ×2 (10:25→20:45)
[2019-06-07] MEDS: DILTIAZEM 120 MG CAP.ER.24H PO SCH (10:25)
[2019-06-07] MEDS: DIGOXIN 0.125 MG TABLET PO SCH (10:25)
[2019-06-07] MEDS: APIXABAN 5 MG TABLET PO SCH ×2 (10:26→20:46)
[2019-06-07 14:00] VITALS: BP 103/65
[2019-06-07] MEDS: CEFTRIAXONE PMX 1GM/50ML 50 ML IV SCH (17:48)
[2019-06-07] MEDS: ATORVASTATIN 80 MG TABLET PO SCH (20:45)
[2019-06-07] MEDS: ZOLPIDEM 5MG TABLET PO SCH (20:46)
[2019-06-07] MEDS: AMITRIPTYLINE 50 MG TABLET PO SCH (20:46)
[2019-06-07 20:48] VITALS: BP 120/80
[2019-06-08 02:55] VITALS: BP 112/73
[2019-06-08] MEDS ORDERED: METOPROLOL SUCCINATE 50 MG TAB.ER.24H PO SCH (06:00)
[2019-06-08] MEDS: ASPIRIN 325 MG TABLET EC PO SCH (06:27)
[2019-06-08] MEDS: HYDROcodone/APAP 5/325 TABLET PO PRN ×2 (06:27→15:24)
[2019-06-08 06:30] VITALS: BP 109/69
[2019-06-08 07:42] VITALS: BP 104/66
[2019-06-08] MEDS: APIXABAN 5 MG TABLET PO SCH (08:50)
[2019-06-08] MEDS: CHLORHEXIDINE 15 ML UDC MM SCH (08:50)
[2019-06-08] MEDS: BUMETANIDE 1 MG TABLET PO SCH ×2 (08:50→15:24)
[2019-06-08] MEDS: GABAPENTIN 100 MG CAPSULE PO SCH (08:50)
[2019-06-08] MEDS: DIGOXIN 0.125 MG TABLET PO SCH (08:50)
[2019-06-08] MEDS: DILTIAZEM 120 MG CAP.ER.24H PO SCH (08:50)
[2019-06-08] MEDS: DOCUSATE 100 MG CAPSULE PO SCH (08:50)
[2019-06-08] MEDS: CITALOPRAM 20 MG TABLET PO SCH (08:51)
[2019-06-08] MEDS ORDERED: BUME1TAB21 PO (11:36)
[2019-06-08] MEDS ORDERED: METO-93 PO (11:36)
[2019-06-08] MEDS ORDERED: CHLO473M MM (11:36)
[2019-06-08] MEDS ORDERED: APIX5TAB PO (11:36)
[2019-06-08] MEDS ORDERED: CEFD300C37 PO (11:36)
[2019-06-08] MEDS ORDERED: DIGO125T PO (11:36)
[2019-06-08 13:40] VITALS: BP 109/86
[2019-06-08] MEDS: CEFTRIAXONE PMX 1GM/50ML 50 ML IV SCH (14:52)
== END 2019-06-08 16:05 | DRG 131 ==
LOC: ED 16:02 → EDIP 16:03 → ED 16:03 → 5SO 18:32
PROVIDERS: ADMIT Family Medicine; ATTEND Family Medicine
PROC: 0T9B70Z Drainage of Bladder with Drainage Device, Via Natural or Artificial Opening (ICD-10-PCS; principal; 2019-06-01)
PROC: 0NQV0ZZ Repair Left Mandible, Open Approach (ICD-10-PCS; 2019-06-03)
PROC: 0CDXXZ1 Extraction of Lower Tooth, Multiple, External Approach (ICD-10-PCS; 2019-06-03)
PROC: 0C9X0Z1 Drainage of Lower Tooth, Open Approach, Multiple (ICD-10-PCS; 2019-06-03)
DX: K04.7 Periapical abscess without sinus (principal); L02.01 Cutaneous abscess of face; T83.511A Infection and inflammatory reaction due to indwelling urethral catheter, initial encounter; S02.31XA Fracture of orbital floor, right side, initial encounter for closed fracture; I13.0 Hypertensive heart and chronic kidney disease with heart failure and stage 1 through stage 4 chronic kidney disease, or unspecified chronic kidney disease; J96.11 Chronic respiratory failure with hypoxia; D68.69 Other thrombophilia; N17.9 Acute kidney failure, unspecified; N39.0 Urinary tract infection, site not specified; K02.9 Dental caries, unspecified; N18.3 Chronic kidney disease, stage 3 (moderate); B96.20 Unspecified Escherichia coli [E. coli] as the cause of diseases classified elsewhere; D75.89 Other specified diseases of blood and blood-forming organs; E03.9 Hypothyroidism, unspecified; E87.6 Hypokalemia; I27.20 Pulmonary hypertension, unspecified; I35.0 Nonrheumatic aortic (valve) stenosis; I48.91 Unspecified atrial fibrillation; J45.909 Unspecified asthma, uncomplicated; S62.101A Fracture of unspecified carpal bone, right wrist, initial encounter for closed fracture; K76.1 Chronic passive congestion of liver; M81.0 Age-related osteoporosis without current pathological fracture; R29.6 Repeated falls; R31.0 Gross hematuria; G43.909 Migraine, unspecified, not intractable, without status migrainosus; T50.2X5A Adverse effect of carbonic-anhydrase inhibitors, benzothiadiazides and other diuretics, initial encounter; Z66 Do not resuscitate; I50.9 Heart failure, unspecified; W18.30XA Fall on same level, unspecified, initial encounter; Y93.89 Activity, other specified; S80.01XA Contusion of right knee, initial encounter; Y92.89 Other specified places as the place of occurrence of the external cause; Y99.8 Other external cause status; Y84.6 Urinary catheterization as the cause of abnormal reaction of the patient, or of later complication, without mention of misadventure at the time of the procedure; Z99.81 Dependence on supplemental oxygen; Z96.653 Presence of artificial knee joint, bilateral; Z91.81 History of falling; Z91.19 Patient's noncompliance with other medical treatment and regimen; Z90.710 Acquired absence of both cervix and uterus; Z82.3 Family history of stroke; Z79.83 Long term (current) use of bisphosphonates
CPT/HCPCS: 36415; 70100; 70490; 71045; 80048; 80053; 81001; 82607; 82962; 83735; 83880; 84100; 84132; 84439; 84443; 84484; 85025; 85520; 85610; 87077; 87086; 87186; 93005; 93306; 99291; G0378; J0171; J0696; J1644; J1940; J2250; J2704; J3010; J3490

== ENCOUNTER 2019-07-19 12:34 | Emergency (ER) | payer MEDICARE ==
[~2019-07-19] VITALS: Ht 152.4 cm; Wt 70.5 kg
[~2019-07-19 12:34] MED LIST changes: +APIX5TAB PO; +ASPI-496 PO; +ATOR-2 PO; +ATOR40TA78 PO; +CARV12.52 PO; +CEFD300C37 PO; +CHLO473M MM; +DIGO125T PO; +DILT-8 PO; +DOXY100T PO; +METO-93 PO; +POTA20TA14 PO
[2019-07-19 12:39] VITALS: BP 97/56
--- NOTE | 2019-07-19 12:58 | NUR ---
PT HERE WITH C/O LEFT LEG LAC, STATES ON BLOOD THINNERS.
[2019-07-19] MEDS ORDERED: LIDOCAINE 1%-EPI 1:100K, 20ML ONE (13:10)
[2019-07-19] MEDS ORDERED: LIDOCAINE 1%-EPI 1:100K, 20ML SQ ONE (13:30)
--- NOTE | 2019-07-19 14:07 | NUR ---
Patient/Caregiver given discharge instructions and they have confirmed that they understand the instructions. Patient ESCORTED OUT VIA WHEELCHAIR WITH FAMILY.
== END 2019-07-19 14:20 | disposition home or self-care (01) ==
LOC: ED 13:52
DX: S81.811A Laceration without foreign body, right lower leg, initial encounter (principal); Z88.0 Allergy status to penicillin; Z88.2 Allergy status to sulfonamides; Z88.5 Allergy status to narcotic agent; Z88.6 Allergy status to analgesic agent; W22.8XXA Striking against or struck by other objects, initial encounter; Y93.89 Activity, other specified; Y92.009 Unspecified place in unspecified non-institutional (private) residence as the place of occurrence of the external cause; Y99.8 Other external cause status
CPT/HCPCS: 12034; 99284

== ENCOUNTER 2019-07-27 12:51 | Inpatient (IN) | payer MEDICARE ==
[~2019-07-27] VITALS: Ht 152.4 cm; Wt 77.9 kg
[2019-07-27] MEDS ORDERED: IRON15TA3 PO (13:15)
[2019-07-27] MEDS ORDERED: NAPR220C2 PO (13:15)
[2019-07-27] MEDS ORDERED: FUROSEMIDE 40 MG/4 ML ONE (13:20)
--- NOTE | 2019-07-27 13:20 | NUR ---
pt BIB by [facility] for C/O increased ALOC per family. pt A/Ox3, mummbles, hearing aids in place. pt changed into hospital gown, connected to monitors. Son, Og, at bedside. MD at bedside discussing POC. Call light within reach. Denies needs at this time. XRAY and lab at bedside.
[2019-07-27] MEDS ORDERED: SODIUM CHLORIDE 0.9% 1,000ML IVBOLUS ONE (13:30)
[2019-07-27] MEDS ORDERED: SODIUM CHLORIDE FLUSH 10ML SYR IVF ONE (13:30)
[2019-07-27] MEDS ORDERED: FUROSEMIDE 40 MG/4 ML IVPush ONE (13:30)
[2019-07-27 13:54] LABS: BASOPHILS # (AUTO) 0.05 x10^3/uL (0-0.1); BASOPHILS % (AUTO) 1 % (0-1); EOSINOPHILS # (AUTO) 0.52 x10^3/uL (0-0.4); EOSINOPHILS % (AUTO) 9 % (1-7); LYMPHOCYTES # (AUTO) 1.08 x10^3/uL (1-3.4); LYMPHOCYTES % (AUTO) 18 % (22-44); MD NO; MEAN CORPUSCULAR HEMOGLOBIN 30.9 pg (27.0-34.8); MEAN CORPUSCULAR HGB CONC 31.8 g/dL (32.4-35.8); MEAN CORPUSCULAR VOLUME 97.3 fL (80-100); MEAN PLATELET VOLUME 8.4 fL (7.4-10.4); MONOCYTES # (AUTO) 0.54 x10^3/uL (0.2-0.8); MONOCYTES % (AUTO) 9 % (2-9); NEUTROPHILS # (AUTO) 3.75 x10^3/uL (1.8-6.8); NEUTROPHILS % (AUTO) 63 % (42-75); PLATELET COUNT 256 x10^3/uL (130-400); RED BLOOD COUNT 3.91 x10^6/uL (3.82-5.3); RED CELL DISTRIBUTION WIDTH 16.1 % (9.6-15.2)
[2019-07-27 13:59] LABS: ALANINE AMINOTRANSFERASE 52 U/L (12-78); ALBUMIN 2.7 g/dL (3.4-5.0); ANION GAP 4 mmol/L (5-15); CALCIUM 8.4 mg/dL (8.5-10.1); CHLORIDE 103 mmol/L (98-107); INTERNATIONAL NORMALIZED RATIO 1.14 (0.93-1.1); PROTHROMBIN TIME 12.1 Seconds (9.6-11.5)
--- NOTE | 2019-07-27 13:59 | NUR ---
LUNCH RN: IV PLACED, LABS AND BLOOD CULTURES X2 DRAWN. FLUIDS RUNNING PER AUG. PT MEDICATED WITH LASIX PER AUG. STRAIGHT CATH UA COLLECTED AND SENT TO LAB. BRIANNA WEST AT THIS TIME. FAMILY AT BEDSIDE. CALL LIGHT WITHIN REACH.
[2019-07-27 14:05] LABS: MICROSCOPIC AUTO
[2019-07-27 14:05] LABS: ALKALINE PHOSPHATASE 157 U/L (45-117); BILIRUBIN,TOTAL 0.4 mg/dL (0.2-1.0); CREATININE 0.99 mg/dL (0.55-1.02); TOTAL PROTEIN 6.9 g/dL (6.4-8.2); TROPONIN I < 0.015 ng/mL (0.000-0.045)
[2019-07-27 14:23] LABS: CULTURE INDICATED? YES
--- NOTE | 2019-07-27 14:47 | NUR ---
pt resting in [facility]. resps even and unlabored. all monitors in place. call light within reach.
--- NOTE | 2019-07-27 15:24 | NUR ---
HOSPITALIST AT BEDSIDE. PT TO BE ADMITTED.
--- NOTE | 2019-07-27 16:05 | NUR ---
Report called to Marley. pt to transfer to [phone]. Updated pt and pts son.
--- NOTE | 2019-07-27 16:15 | NUR ---
pillow provided at this time.
[2019-07-27 16:47] VITALS: BP 114/71
[2019-07-27] MEDS: ENOXAPARIN 40 MG/0.4 ML SQ SCH (17:27)
[2019-07-27 19:54] VITALS: BP 110/66
[2019-07-27] MEDS: CARVEDILOL 3.125 MG TABLET PO SCH (20:27)
[2019-07-27] MEDS: ATORVASTATIN 40 MG TABLET PO SCH (20:27)
[2019-07-27] MEDS: POTASSIUM CHLORIDE 20 MEQ TAB.ER.PRT PO SCH (20:27)
[2019-07-27] MEDS ORDERED: OXYcodone/APAP 5/325MG TABLET ONE (23:16)
[2019-07-27] MEDS ORDERED: ZOLPIDEM 5MG TABLET ONE (23:17)
[2019-07-27] MEDS: ZOLPIDEM 5MG TABLET PO PRN (23:20)
[2019-07-27] MEDS ORDERED: HYDROcodone/APAP 5/325 TABLET ONE (23:22)
[2019-07-27] MEDS: HYDROcodone/APAP 5/325 TABLET PO PRN (23:23)
[2019-07-28 01:01] VITALS: BP 106/61
[2019-07-28 06:07] LABS: ANION GAP 4 mmol/L (5-15); CALCIUM 8.3 mg/dL (8.5-10.1); CHLORIDE 104 mmol/L (98-107); CREATININE 0.93 mg/dL (0.55-1.02)
[2019-07-28 06:09] LABS: BASOPHILS # (AUTO) 0.04 x10^3/uL (0-0.1); BASOPHILS % (AUTO) 1 % (0-1); EOSINOPHILS # (AUTO) 0.52 x10^3/uL (0-0.4); EOSINOPHILS % (AUTO) 10 % (1-7); LYMPHOCYTES # (AUTO) 1.43 x10^3/uL (1-3.4); LYMPHOCYTES % (AUTO) 28 % (22-44); MD NO; MEAN CORPUSCULAR HEMOGLOBIN 31.1 pg (27.0-34.8); MEAN CORPUSCULAR VOLUME 97.3 fL (80-100); MEAN PLATELET VOLUME 8.8 fL (7.4-10.4); MONOCYTES # (AUTO) 0.49 x10^3/uL (0.2-0.8); MONOCYTES % (AUTO) 10 % (2-9); NEUTROPHILS # (AUTO) 2.61 x10^3/uL (1.8-6.8); NEUTROPHILS % (AUTO) 51 % (42-75); PLATELET COUNT 247 x10^3/uL (130-400); RED BLOOD COUNT 3.66 x10^6/uL (3.82-5.3); RED CELL DISTRIBUTION WIDTH 15.7 % (9.6-15.2)
[2019-07-28 06:23] VITALS: BP 113/77
[2019-07-28] MEDS: DILTIAZEM 120 MG CAP.ER.24H PO SCH (08:29)
[2019-07-28] MEDS: CARVEDILOL 3.125 MG TABLET PO SCH ×2 (08:29→20:19)
[2019-07-28] MEDS: POTASSIUM CHLORIDE 20 MEQ TAB.ER.PRT PO SCH ×2 (08:29→20:18)
[2019-07-28] MEDS: CITALOPRAM 20 MG TABLET PO SCH (08:30)
[2019-07-28] MEDS: FUROSEMIDE 40 MG/4 ML IV SCH (08:30)
[2019-07-28] MEDS: HYDROcodone/APAP 5/325 TABLET PO PRN ×2 (12:05→20:16)
[2019-07-28 12:11] VITALS: BP 124/68
[2019-07-28] MEDS ORDERED: NITROFURANTOIN (MACROBID) 100 MG CAPSULE PO SCH (14:30)
[2019-07-28] MEDS ORDERED: FOSFOMYCIN 3 GM PACKET PO ONE (15:00)
[2019-07-28] MEDS: ENOXAPARIN 40 MG/0.4 ML SQ SCH (17:53)
[2019-07-28] MEDS: ATORVASTATIN 40 MG TABLET PO SCH (20:19)
[2019-07-28 20:49] VITALS: BP 100/72
[2019-07-28] MEDS: NAPROXEN 250 MG TABLET PO PRN (22:45)
[2019-07-29] MEDS ORDERED: NITROGLYCERIN OINT 2%, 1GM TP ONE ×2 (01:30→02:00)
[2019-07-29 01:46] VITALS: BP 138/101
[2019-07-29 02:01] LABS: TROPONIN I < 0.015 ng/mL (0.000-0.045)
[2019-07-29 02:25] VITALS: BP 121/86
[2019-07-29] MEDS: ACETAMINOPHEN 325 MG TABLET PO PRN ×3 (02:26→22:37)
[2019-07-29 06:12] VITALS: BP 126/78
[2019-07-29 06:45] LABS: BASOPHILS # (AUTO) 0.02 x10^3/uL (0-0.1); BASOPHILS % (AUTO) 0 % (0-1); EOSINOPHILS # (AUTO) 0.47 x10^3/uL (0-0.4); EOSINOPHILS % (AUTO) 8 % (1-7); LYMPHOCYTES # (AUTO) 1.35 x10^3/uL (1-3.4); LYMPHOCYTES % (AUTO) 24 % (22-44); MD NO; MEAN CORPUSCULAR HEMOGLOBIN 30.9 pg (27.0-34.8); MEAN CORPUSCULAR VOLUME 96.5 fL (80-100); MEAN PLATELET VOLUME 8.6 fL (7.4-10.4); MONOCYTES # (AUTO) 0.63 x10^3/uL (0.2-0.8); MONOCYTES % (AUTO) 11 % (2-9); NEUTROPHILS # (AUTO) 3.18 x10^3/uL (1.8-6.8); NEUTROPHILS % (AUTO) 56 % (42-75); PLATELET COUNT 252 x10^3/uL (130-400); RED BLOOD COUNT 3.77 x10^6/uL (3.82-5.3); RED CELL DISTRIBUTION WIDTH 15.6 % (9.6-15.2)
[2019-07-29 06:55] LABS: CHLORIDE 104 mmol/L (98-107)
[2019-07-29 07:16] LABS: ALBUMIN 2.4 g/dL (3.4-5.0); ANION GAP 4 mmol/L (5-15); CALCIUM 8.4 mg/dL (8.5-10.1); CREATININE 0.97 mg/dL (0.55-1.02)
[2019-07-29] MEDS ORDERED: CALCIUM GLUCONATE 4.6 MEQ in SODIUM CHLORIDE 0.9% 50 ML IV ONE (07:30)
[2019-07-29] MEDS: THYROID 30 MG TABLET PO SCH (07:47)
[2019-07-29] MEDS: MULTIVITS,STRESS FORMULA 1 TABLET PO SCH (09:54)
[2019-07-29] MEDS: CARVEDILOL 3.125 MG TABLET PO SCH ×2 (09:55→20:25)
[2019-07-29] MEDS: ASCORBIC ACID 500 MG TABLET PO SCH ×2 (09:55→16:24)
[2019-07-29] MEDS: POTASSIUM CHLORIDE 20 MEQ TAB.ER.PRT PO SCH ×2 (09:55→20:26)
[2019-07-29] MEDS: DILTIAZEM 120 MG CAP.ER.24H PO SCH (09:55)
[2019-07-29] MEDS: CITALOPRAM 20 MG TABLET PO SCH (09:55)
[2019-07-29] MEDS: FUROSEMIDE 40 MG/4 ML IV SCH (09:56)
[2019-07-29] MEDS ORDERED: ONDANSETRON 2MG/ML, 2ML ONE (10:14)
[2019-07-29] MEDS ORDERED: ONDANSETRON 2MG/ML, 2ML IVPush PRN (10:30)
[2019-07-29 12:15] VITALS: BP 90/67
[2019-07-29] MEDS: NAPROXEN 250 MG TABLET PO PRN (14:42)
[2019-07-29] MEDS: HYDROcodone/APAP 5/325 TABLET PO PRN ×2 (15:57→20:26)
[2019-07-29] MEDS: MAGNESIUM HYDROXIDE 8%, 30ML UDC PO PRN (16:05)
[2019-07-29] MEDS: CHOLECALCIFEROL 400 UNITS TABLET PO SCH (16:24)
[2019-07-29] MEDS: ENOXAPARIN 40 MG/0.4 ML SQ SCH (16:24)
[2019-07-29 16:30] VITALS: BP 101/74
[2019-07-29] MEDS ORDERED: CHOLECALCIFEROL 400 UNITS/ML ORAL SOL PO SCH (16:30)
[2019-07-29 18:27] VITALS: BP 113/71
[2019-07-29] MEDS: ZOLPIDEM 5MG TABLET PO PRN (20:25)
[2019-07-29] MEDS: ATORVASTATIN 40 MG TABLET PO SCH (20:25)
[2019-07-30 00:19] VITALS: BP 109/65
[2019-07-30] MEDS: NAPROXEN 250 MG TABLET PO PRN (02:53)
[2019-07-30] MEDS: THYROID 30 MG TABLET PO SCH (06:01)
[2019-07-30 06:02] LABS: BASOPHILS # (AUTO) 0.02 x10^3/uL (0-0.1); BASOPHILS % (AUTO) 0 % (0-1); EOSINOPHILS # (AUTO) 0.42 x10^3/uL (0-0.4); EOSINOPHILS % (AUTO) 7 % (1-7); LYMPHOCYTES # (AUTO) 1.54 x10^3/uL (1-3.4); LYMPHOCYTES % (AUTO) 26 % (22-44); MD NO; MEAN PLATELET VOLUME 8.5 fL (7.4-10.4); MONOCYTES # (AUTO) 0.69 x10^3/uL (0.2-0.8); MONOCYTES % (AUTO) 12 % (2-9); NEUTROPHILS # (AUTO) 3.19 x10^3/uL (1.8-6.8); NEUTROPHILS % (AUTO) 55 % (42-75); PLATELET COUNT 271 x10^3/uL (130-400); RED BLOOD COUNT 4.05 x10^6/uL (3.82-5.3); RED CELL DISTRIBUTION WIDTH 15.6 % (9.6-15.2)
[2019-07-30] MEDS: MAGNESIUM HYDROXIDE 8%, 30ML UDC PO PRN (06:05)
[2019-07-30 06:07] LABS: ALBUMIN 2.4 g/dL (3.4-5.0); ANION GAP 4 mmol/L (5-15); CALCIUM 8.8 mg/dL (8.5-10.1); CHLORIDE 105 mmol/L (98-107); CREATININE 0.92 mg/dL (0.55-1.02)
[2019-07-30 07:51] VITALS: BP 128/50
[2019-07-30] MEDS ORDERED: THYR30TA PO (07:57)
[2019-07-30] MEDS ORDERED: CHOL400T2 PO (07:57)
[2019-07-30] MEDS ORDERED: MULT1TAB76 PO (07:57)
[2019-07-30] MEDS ORDERED: ASCO500T6 PO (07:57)
[2019-07-30] MEDS: CHOLECALCIFEROL 400 UNITS TABLET PO SCH (08:55)
[2019-07-30] MEDS: DILTIAZEM 120 MG CAP.ER.24H PO SCH (08:55)
[2019-07-30] MEDS: CARVEDILOL 3.125 MG TABLET PO SCH (08:55)
[2019-07-30] MEDS: MULTIVITS,STRESS FORMULA 1 TABLET PO SCH (08:55)
[2019-07-30] MEDS: POTASSIUM CHLORIDE 20 MEQ TAB.ER.PRT PO SCH (08:55)
[2019-07-30] MEDS: CITALOPRAM 20 MG TABLET PO SCH (08:56)
[2019-07-30] MEDS: ASCORBIC ACID 500 MG TABLET PO SCH (08:56)
[2019-07-30] MEDS: ACETAMINOPHEN 325 MG TABLET PO PRN (10:12)
[2019-07-31] MEDS ORDERED: AMIT100T PO (11:56)
[2019-08-02] MEDS ORDERED: DILT240T PO (16:15)
[2019-08-02] MEDS ORDERED: LINE600T15 PO (16:19)
[2019-08-02] MEDS ORDERED: FURO-93 PO (16:19)
[2019-08-02] MEDS ORDERED: POTA20TA6 PO (16:21)
== END 2019-07-30 12:35 | disposition home health service (06) | DRG 291 ==
LOC: ED 14:48 → EDIP 15:20 → 4EST 16:38 → DCLOUNGE 07-30 12:27
PROVIDERS: ADMIT Internal Medicine Infectious Disease; ATTEND Family Medicine
PROC: 0T9B70Z Drainage of Bladder with Drainage Device, Via Natural or Artificial Opening (ICD-10-PCS; principal; 2019-07-27)
DX: I13.0 Hypertensive heart and chronic kidney disease with heart failure and stage 1 through stage 4 chronic kidney disease, or unspecified chronic kidney disease (principal); G93.41 Metabolic encephalopathy; I48.20 Chronic atrial fibrillation, unspecified; E46 Unspecified protein-calorie malnutrition; N39.0 Urinary tract infection, site not specified; N18.3 Chronic kidney disease, stage 3 (moderate); I35.0 Nonrheumatic aortic (valve) stenosis; J44.9 Chronic obstructive pulmonary disease, unspecified; M81.0 Age-related osteoporosis without current pathological fracture; G43.909 Migraine, unspecified, not intractable, without status migrainosus; I25.10 Atherosclerotic heart disease of native coronary artery without angina pectoris; I50.813 Acute on chronic right heart failure; Z96.653 Presence of artificial knee joint, bilateral; Z66 Do not resuscitate; F39 Unspecified mood [affective] disorder; B95.2 Enterococcus as the cause of diseases classified elsewhere; E11.22 Type 2 diabetes mellitus with diabetic chronic kidney disease; Z90.710 Acquired absence of both cervix and uterus; Z79.4 Long term (current) use of insulin; Z90.49 Acquired absence of other specified parts of digestive tract; Z87.01 Personal history of pneumonia (recurrent); Z82.3 Family history of stroke; Z98.84 Bariatric surgery status; Z82.49 Family history of ischemic heart disease and other diseases of the circulatory system; Z88.0 Allergy status to penicillin; Z68.33 Body mass index [BMI] 33.0-33.9, adult; Z88.2 Allergy status to sulfonamides; Z88.5 Allergy status to narcotic agent; Z79.899 Other long term (current) drug therapy
CPT/HCPCS: 36415; 71045; 80048; 80053; 80069; 81001; 83605; 83735; 83880; 84145; 84439; 84443; 84481; 84484; 85025; 85610; 87040; 87077; 87086; 87186; 93005; 96360; 96361; G0378; J0610; J1650; J1940; J2405; J7030

== ENCOUNTER 2019-11-12 18:37 | Emergency (ER) | payer MEDICARE ==
[~2019-11-12] VITALS: Ht 152.4 cm; Wt 73.4 kg
[~2019-11-12 18:37] MED LIST changes: +ASCO500T6 PO; +CARV6.2512 PO; +CHOL400T2 PO; -DIGO125T PO; +DIGO125T85 PO; +DILT240T PO; +FURO-93 PO; +IRON15TA3 PO; +LINE600T15 PO; +MULT1TAB76 PO; +POTA20TA6 PO; +SUMA6VIA18 SC; -SUMA6VIA2 SC; +THYR30TA PO; +TRAZ-96 PO
[2019-11-12] MEDS ORDERED: LIDOCAINE-MPF 1%, 5ML ONE (18:57)
[2019-11-12] MEDS ORDERED: BUPIVACAINE 0.25% ONE (18:57)
[2019-11-12] MEDS ORDERED: LIDOCAINE 1%, 10ML INFIL ONE (19:00)
[2019-11-12] MEDS ORDERED: BUPIVACAINE 0.25% INFIL ONE (19:00)
[2019-11-12] MEDS ORDERED: HYDROcodone/APAP 5/325 TABLET ONE (19:16)
--- NOTE | 2019-11-12 19:20 | NUR ---
PT TO ED WITH C/O HEADACHE. REPORTS HX OF MIGRAINES. UNABLE TO SEE NEUROLOGIST. OCCIPITAL NERVE BLOCK COMPLETED PER PHYSICIAN. PATIENT GIVEN NORCO AND ICE PACK. RESTING WITH LIGHTS OFFS.
[2019-11-12] MEDS ORDERED: HYDROcodone/APAP 5/325 TABLET PO ONE (19:30)
[2019-11-12 19:39] VITALS: BP 109/64
[2019-11-14] MEDS ORDERED: FURO40TA6 PO (17:32)
[2019-11-14] MEDS ORDERED: POTA20TA14 PO (17:32)
[2019-11-14] MEDS ORDERED: ACET-1600 PO (17:32)
[2019-11-14] MEDS ORDERED: TRAZ-96 PO (17:32)
[2019-11-14] MEDS ORDERED: SENN1TAB68 PO (17:32)
[2019-11-14] MEDS ORDERED: CARV6.252 PO (17:32)
== END 2019-11-12 19:42 | disposition home or self-care (01) ==
LOC: ED 19:35
DX: G44.209 Tension-type headache, unspecified, not intractable (principal); I13.0 Hypertensive heart and chronic kidney disease with heart failure and stage 1 through stage 4 chronic kidney disease, or unspecified chronic kidney disease; N18.3 Chronic kidney disease, stage 3 (moderate); I50.9 Heart failure, unspecified; J44.9 Chronic obstructive pulmonary disease, unspecified; I48.91 Unspecified atrial fibrillation; Z90.49 Acquired absence of other specified parts of digestive tract; Z90.710 Acquired absence of both cervix and uterus
CPT/HCPCS: 64405; 99284

== ENCOUNTER 2019-11-13 16:21 | Emergency (ER) | payer MEDICARE ==
[~2019-11-13] VITALS: Ht 152.4 cm; Wt 69.1 kg
[2019-11-13 19:54] VITALS: BP 116/65
[2019-11-14] MEDS ORDERED: FURO40TA6 PO (17:32)
[2019-11-14] MEDS ORDERED: ACET-1600 PO (17:32)
[2019-11-14] MEDS ORDERED: SENN1TAB68 PO (17:32)
[2019-11-14] MEDS ORDERED: CARV6.252 PO (17:32)
[2019-11-14] MEDS ORDERED: TRAZ-96 PO (17:32)
[2019-11-14] MEDS ORDERED: POTA20TA14 PO (17:32)
[2019-11-15] MEDS ORDERED: FLUO20CA19 PO (08:26)
== END 2019-11-13 21:48 ==
LOC: ED 21:15
DX: M79.604 Pain in right leg (principal); M79.605 Pain in left leg; R51 Headache; H92.03 Otalgia, bilateral; Z53.21 Procedure and treatment not carried out due to patient leaving prior to being seen by health care provider

== ENCOUNTER 2020-01-08 16:32 | Inpatient (IN) | payer MEDICARE ==
[~2020-01-08] VITALS: Ht 152.4 cm; Wt 84.1 kg
[~2020-01-08 16:32] MED LIST changes: +ACET-1600 PO; -ASCO500T6 PO; +ASCO500T9 PO; +CARV6.252 PO; +DOCU250C16 PO; -DOCU250C62 PO; +FLUO20CA19 PO; +FURO40TA6 PO; +SENN1TAB68 PO
--- NOTE | 2020-01-08 17:18 | NUR ---
BELLO LOWERY PERFORMED AND WALKED TO LAB. PIV PLACED, LABS DRAWN.
--- NOTE | 2020-01-08 17:26 | NUR ---
LATE ENTRY DUE TO PATIENT CARE: THIS IS AN 84 YO FEMALE BIB [facility] FROM HOME FOR MGLF, ASSISTED TO GROUND BY SON, NO LOC, DENIES MIDLINE HEAD/NECK/BACK PAIN. C/O MILD RIGHT HIP AND LOW BACK PAIN, SLIGHTLY TENDER TO PALPATION, NO OBVIOUS DEFORMITIES, NO CREPITUS. SON STATES "SUNDAY SHE WAS WALKIGN AROUND ACTING NORMALLY, WE WENT OUT, THEN SUNDAY AND SUNDAY SHE STARTED LOOKING AND ACTING REALLY WEAK. SHE CAN'T WALK NOW AND HER LEGS ARE JUST SO SWOLLEN. SHE ALSO SAYS SHE HAS A SORE THROAT TODAY, AND HAD AN EPISODE OF DIARRHEA". PATIENT HAS BILATERAL LEG EDEMA 4+ PILLING AND WEEPING. PATIENT HAS HOME WOUND CARE NURSE WRAP LEGS, WRAPPING LOOKS CLEAN AND DRY, TOES APPEAR TO BE WEEPING. PATIENT HAS SLURRED SPEECH, SON STATES "IT'S KIND OF HER NORMAL, BUT I CAN'T REALLY TELL". ERP COMPLETEDRAPID STROKE ASSESSMENT, WHICH APPEARS TO BE NEGATIVE. ALL MONITORING IN PLACE, SINUS RHYTHM WITH INTERMITTENT AFIB PRESENT. VSS, NADN. PATIENT WEARS 3L HOME O2, PLACED ON 3L HERE AT 99% SPO2. CALL LIGHT IN REACH
[2020-01-08] MEDS ORDERED: CBD OIL (17:36)
[2020-01-08] MEDS ORDERED: GABA600T7 PO (17:36)
--- NOTE | 2020-01-08 17:36 | NUR ---
PATIENT IN IMAGING
[2020-01-08 17:40] LABS: MICROSCOPIC NOT IND
[2020-01-08 17:42] LABS: ANION GAP 6 mmol/L (5-15); CALCIUM 8.3 mg/dL (8.5-10.1); CHLORIDE 104 mmol/L (98-107); CREATININE 0.79 mg/dL (0.55-1.02)
[2020-01-08 17:51] LABS: BASOPHILS # (AUTO) 0.01 x10^3/uL (0-0.1); BASOPHILS % (AUTO) 0 % (0-1); EOSINOPHILS % (AUTO) 5 % (1-7); LYMPHOCYTES # (AUTO) 0.55 x10^3/uL (1-3.4); LYMPHOCYTES % (AUTO) 6 % (22-44); MD NO; MEAN CORPUSCULAR HGB CONC 32.7 g/dL (32.4-35.8); MEAN CORPUSCULAR VOLUME 106.9 fL (80-100); MEAN PLATELET VOLUME 7.5 fL (7.4-10.4); MONOCYTES # (AUTO) 0.77 x10^3/uL (0.2-0.8); MONOCYTES % (AUTO) 9 % (2-9); NEUTROPHILS # (AUTO) 6.96 x10^3/uL (1.8-6.8); NEUTROPHILS % (AUTO) 80 % (42-75); PLATELET COUNT 439 x10^3/uL (130-400); RED BLOOD COUNT 3.87 x10^6/uL (3.82-5.3); RED CELL DISTRIBUTION WIDTH 18.3 % (9.6-15.2)
--- NOTE | 2020-01-08 18:01 | NUR ---
PATIENT BACK FROM IMAGING, MONITORING BACK IN PLACE
--- NOTE | 2020-01-08 18:41 | NUR ---
PATIENT IN CT
--- NOTE | 2020-01-08 18:56 | NUR ---
TERESA (SON): [phone] OKAY TO CALL AND GIVE PATIENT INFO
--- NOTE | 2020-01-08 19:45 | NUR ---
ADMITTING MD IN ROOM
--- NOTE | 2020-01-08 19:58 | NUR ---
ATTEMPT TO CALL REPORT X1
--- NOTE | 2020-01-08 20:14 | NUR ---
ATTEMPT TO CALL REPORT X2
--- NOTE | 2020-01-08 20:22 | NUR ---
ATTEMPT TO CALL REPORT X3, STATES RN WILL CALL BACK
[2020-01-08] MEDS ORDERED: TEMAZEPAM 15 MG CAPSULE PO PRN (20:30)
[2020-01-08] MEDS ORDERED: ACETAMINOPHEN 500 MG TABLET PO SCH (20:30)
[2020-01-08] MEDS ORDERED: hydrALAzine 20 MG/ML, 1ML IVPush PRN (20:30)
[2020-01-08] MEDS ORDERED: ONDANSETRON 2MG/ML, 2ML IVPush PRN (20:30)
--- NOTE | 2020-01-08 20:32 | NUR ---
REPORT GIVEN TO LOUIS AJ. PLAN OF CARE DISCUSSED
[2020-01-08] MEDS ORDERED: FERROUS SULFATE 325 MG TABLET PO SCH (21:00)
[2020-01-08] MEDS ORDERED: FAMOTIDINE 20 MG TABLET PO SCH (21:00)
[2020-01-08] MEDS ORDERED: POTASSIUM CHLORIDE 20 MEQ TAB.ER.PRT PO SCH (21:00)
[2020-01-08] MEDS ORDERED: [UNRECOGNIZED DRUG - REMARK] MC SCH (21:00)
[2020-01-09] MEDS: CARVEDILOL 6.25 MG TABLET PO SCH ×3 (00:01→20:36)
[2020-01-09] MEDS: TRAZODONE 50MG TABLET PO SCH ×2 (00:01→20:36)
[2020-01-09] MEDS: ENOXAPARIN 40 MG/0.4 ML SQ SCH ×2 (00:02→20:36)
[2020-01-09] MEDS: GABAPENTIN 100 MG CAPSULE PO SCH ×3 (00:02→20:36)
[2020-01-09] MEDS: ATORVASTATIN 40 MG TABLET PO SCH ×2 (00:02→20:36)
[2020-01-09] MEDS: SENNA/DOCUSATE TABLET PO SCH ×4 (00:02→21:00)
[2020-01-09] MEDS ORDERED: ACETAMINOPHEN 325 MG TABLET PO PRN (00:30)
[2020-01-09 03:59] VITALS: BP 108/69
[2020-01-09 05:33] LABS: BASOPHILS # (AUTO) 0.02 x10^3/uL (0-0.1); BASOPHILS % (AUTO) 0 % (0-1); EOSINOPHILS # (AUTO) 0.48 x10^3/uL (0-0.4); EOSINOPHILS % (AUTO) 6 % (1-7); LYMPHOCYTES % (AUTO) 7 % (22-44); MD NO; MEAN CORPUSCULAR HGB CONC 31.4 g/dL (32.4-35.8); MEAN CORPUSCULAR VOLUME 108.2 fL (80-100); MONOCYTES # (AUTO) 0.72 x10^3/uL (0.2-0.8); MONOCYTES % (AUTO) 9 % (2-9); NEUTROPHILS # (AUTO) 6.54 x10^3/uL (1.8-6.8); NEUTROPHILS % (AUTO) 78 % (42-75); PLATELET COUNT 397 x10^3/uL (130-400); RED BLOOD COUNT 3.86 x10^6/uL (3.82-5.3); RED CELL DISTRIBUTION WIDTH 18.9 % (9.6-15.2)
[2020-01-09 05:44] LABS: ALBUMIN 1.8 g/dL (3.4-5.0); ANION GAP 6 mmol/L (5-15); CALCIUM 8.2 mg/dL (8.5-10.1); CHLORIDE 105 mmol/L (98-107)
[2020-01-09 06:02] LABS: ALANINE AMINOTRANSFERASE 62 U/L (12-78); ALKALINE PHOSPHATASE 173 U/L (45-117); BILIRUBIN,TOTAL 0.3 mg/dL (0.2-1.0); CREATININE 0.69 mg/dL (0.55-1.02); TOTAL PROTEIN 5.7 g/dL (6.4-8.2)
[2020-01-09] MEDS: THYROID 30 MG TABLET PO SCH (06:26)
[2020-01-09] MEDS ORDERED: POTASSIUM CHLORIDE 20 MEQ TAB.ER.PRT PO SCH (08:00)
[2020-01-09 08:38] VITALS: BP 98/61
[2020-01-09 08:59] VITALS: BP 112/80
[2020-01-09] MEDS: LACTOBACILLUS CHEW TABLET PO SCH ×3 (09:01→20:35)
[2020-01-09] MEDS: CHOLECALCIFEROL 400 UNITS TABLET PO SCH (09:02)
[2020-01-09] MEDS: FLUOXETINE HCL 20 MG CAPSULE PO SCH (09:02)
[2020-01-09] MEDS: DIGOXIN 0.125 MG TABLET PO SCH (09:02)
[2020-01-09] MEDS: CALCIUM CARBONATE 500 MG TABLET PO SCH ×2 (09:05→20:36)
[2020-01-09] MEDS: MULTIVITS,STRESS FORMULA 1 TABLET PO SCH (09:05)
[2020-01-09 15:45] VITALS: BP 108/67
[2020-01-09] MEDS: ACETAMINOPHEN 325 MG TABLET PO PRN (16:09)
[2020-01-09 19:13] VITALS: BP 100/63
[2020-01-10 02:00] VITALS: BP 103/65
[2020-01-10] MEDS: THYROID 30 MG TABLET PO SCH (05:28)
[2020-01-10] MEDS: ACETAMINOPHEN 325 MG TABLET PO PRN ×2 (05:50→19:33)
[2020-01-10 08:00] VITALS: BP 106/73
[2020-01-10 08:12] LABS: ANION GAP 10 mmol/L (5-15); CALCIUM 8.2 mg/dL (8.5-10.1); CHLORIDE 103 mmol/L (98-107); CREATININE 0.64 mg/dL (0.55-1.02)
[2020-01-10] MEDS: LACTOBACILLUS CHEW TABLET PO SCH ×3 (08:30→20:40)
[2020-01-10] MEDS: CHOLECALCIFEROL 400 UNITS TABLET PO SCH (08:31)
[2020-01-10] MEDS: CALCIUM CARBONATE 500 MG TABLET PO SCH ×2 (08:31→20:41)
[2020-01-10] MEDS: GABAPENTIN 100 MG CAPSULE PO SCH ×2 (08:31→20:41)
[2020-01-10] MEDS: MULTIVITS,STRESS FORMULA 1 TABLET PO SCH (08:32)
[2020-01-10] MEDS: DIGOXIN 0.125 MG TABLET PO SCH (08:32)
[2020-01-10] MEDS: FLUOXETINE HCL 20 MG CAPSULE PO SCH (08:32)
[2020-01-10] MEDS: SENNA/DOCUSATE TABLET PO SCH ×3 (08:35→21:00)
[2020-01-10] MEDS: CARVEDILOL 6.25 MG TABLET PO SCH ×2 (08:35→20:44)
[2020-01-10 12:33] VITALS: BP 97/56
[2020-01-10] MEDS: HYDROcodone/APAP 5/325 TABLET PO PRN (13:15)
[2020-01-10 19:22] VITALS: BP 108/75
[2020-01-10] MEDS: ATORVASTATIN 40 MG TABLET PO SCH (20:41)
[2020-01-10] MEDS: FUROSEMIDE 40 MG TABLET PO SCH (20:41)
[2020-01-10] MEDS: TRAZODONE 50MG TABLET PO SCH (20:42)
[2020-01-10] MEDS ORDERED: APIXABAN 5 MG TABLET PO SCH (21:00)
[2020-01-10] MEDS ORDERED: FERROUS SULFATE 325 MG TABLET PO SCH (21:00)
[2020-01-11 00:52] VITALS: BP 111/64
[2020-01-11] MEDS: THYROID 30 MG TABLET PO SCH (05:44)
[2020-01-11] MEDS: ACETAMINOPHEN 325 MG TABLET PO PRN ×3 (05:45→20:44)
[2020-01-11] MEDS ORDERED: ALENDRONATE 70 MG TABLET PO SCH (06:30)
[2020-01-11 06:31] LABS: ANION GAP 7 mmol/L (5-15); CALCIUM 8.4 mg/dL (8.5-10.1); CHLORIDE 104 mmol/L (98-107)
[2020-01-11 06:33] LABS: % IRON SATURATION 16 % (20-55); IRON LEVEL 63 mcg/dL (50-170); TOTAL IRON BINDING CAPACITY 397 mcg/dL (250-450)
[2020-01-11 07:24] VITALS: BP 119/70
[2020-01-11] MEDS ORDERED: ENOXAPARIN 40 MG/0.4 ML SQ SCH (08:00)
[2020-01-11] MEDS ORDERED: LIDOCAINE 1%, 10ML ONE (08:03)
[2020-01-11] MEDS: LACTOBACILLUS CHEW TABLET PO SCH ×3 (09:24→20:45)
[2020-01-11] MEDS: MULTIVITS,STRESS FORMULA 1 TABLET PO SCH (09:24)
[2020-01-11] MEDS: FUROSEMIDE 40 MG TABLET PO SCH ×2 (09:25→20:46)
[2020-01-11] MEDS: FLUOXETINE HCL 20 MG CAPSULE PO SCH (09:25)
[2020-01-11] MEDS: SENNA/DOCUSATE TABLET PO SCH ×3 (09:25→20:45)
[2020-01-11] MEDS: DIGOXIN 0.125 MG TABLET PO SCH (09:25)
[2020-01-11] MEDS: GABAPENTIN 100 MG CAPSULE PO SCH ×2 (09:25→20:45)
[2020-01-11] MEDS: CALCIUM CARBONATE 500 MG TABLET PO SCH ×2 (09:25→20:46)
[2020-01-11] MEDS: CHOLECALCIFEROL 400 UNITS TABLET PO SCH (09:26)
[2020-01-11] MEDS: CARVEDILOL 6.25 MG TABLET PO SCH ×2 (09:27→20:45)
[2020-01-11] MEDS: POLYETHYLENE GLYCOL 17 GM PACKET NG PRN (14:13)
[2020-01-11 14:39] VITALS: BP 109/74
[2020-01-11] MEDS: HYDROcodone/APAP 5/325 TABLET PO PRN (18:40)
[2020-01-11 19:52] VITALS: BP 95/61
[2020-01-11] MEDS: TRAZODONE 50MG TABLET PO SCH (20:45)
[2020-01-11] MEDS: ATORVASTATIN 40 MG TABLET PO SCH (20:46)
[2020-01-11 20:51] VITALS: BP 101/59
[2020-01-12] VITALS: BP 121/66
[2020-01-12] MEDS: THYROID 30 MG TABLET PO SCH (06:13)
[2020-01-12 06:41] VITALS: BP 106/70
[2020-01-12] MEDS: CALCIUM CARBONATE 500 MG TABLET PO SCH (08:48)
[2020-01-12] MEDS: SENNA/DOCUSATE TABLET PO SCH ×2 (08:48→16:00)
[2020-01-12] MEDS: LACTOBACILLUS CHEW TABLET PO SCH ×2 (08:48→16:04)
[2020-01-12] MEDS: ACETAMINOPHEN 325 MG TABLET PO PRN (08:48)
[2020-01-12] MEDS: MULTIVITS,STRESS FORMULA 1 TABLET PO SCH (08:48)
[2020-01-12] MEDS: GABAPENTIN 100 MG CAPSULE PO SCH (08:48)
[2020-01-12] MEDS: POLYETHYLENE GLYCOL 17 GM PACKET NG PRN (08:49)
[2020-01-12] MEDS: FUROSEMIDE 40 MG TABLET PO SCH (08:49)
[2020-01-12] MEDS: CARVEDILOL 6.25 MG TABLET PO SCH (08:49)
[2020-01-12] MEDS: FLUOXETINE HCL 20 MG CAPSULE PO SCH (08:49)
[2020-01-12] MEDS ORDERED: APIXABAN 5 MG TABLET PO SCH (09:00)
[2020-01-12] MEDS ORDERED: BISACODYL 10 MG SUPP PR SCH (09:30)
[2020-01-12] MEDS: CHOLECALCIFEROL 400 UNITS TABLET PO SCH (10:04)
[2020-01-12] MEDS: SIMETHICONE 80 MG CHEW TAB PO SCH ×2 (10:04→16:04)
[2020-01-12] MEDS: HYDROcodone/APAP 5/325 TABLET PO PRN (10:05)
[2020-01-12] MEDS ORDERED: SIME80TA16 PO (10:37)
[2020-01-12] MEDS ORDERED: ACID1TAB7 PO (10:37)
[2020-01-12] MEDS ORDERED: Calcium Carbonate PO (10:37)
[2020-01-12] MEDS ORDERED: IRON15TA3 PO (10:37)
[2020-01-12] MEDS ORDERED: APIX5TAB PO (10:37)
[2020-01-12] MEDS ORDERED: DIGO125T10 PO (12:26)
[2020-01-12 12:53] VITALS: BP 93/59
== END 2020-01-12 17:29 | DRG 291 ==
LOC: ED 19:33 → 3N 19:34
PROVIDERS: ADMIT Internal Medicine; ATTEND Internal Medicine
PROC: 0T9B70Z Drainage of Bladder with Drainage Device, Via Natural or Artificial Opening (ICD-10-PCS; principal; 2020-01-08)
PROC: 0W993ZZ Drainage of Right Pleural Cavity, Percutaneous Approach (ICD-10-PCS; 2020-01-11)
DX: I13.0 Hypertensive heart and chronic kidney disease with heart failure and stage 1 through stage 4 chronic kidney disease, or unspecified chronic kidney disease (principal); I50.33 Acute on chronic diastolic (congestive) heart failure; E43 Unspecified severe protein-calorie malnutrition; J90 Pleural effusion, not elsewhere classified; J96.11 Chronic respiratory failure with hypoxia; E83.51 Hypocalcemia; E87.6 Hypokalemia; I48.91 Unspecified atrial fibrillation; E78.5 Hyperlipidemia, unspecified; E03.9 Hypothyroidism, unspecified; F32.9 Major depressive disorder, single episode, unspecified; M79.606 Pain in leg, unspecified; G89.29 Other chronic pain; W18.39XA Other fall on same level, initial encounter; D50.9 Iron deficiency anemia, unspecified; D47.3 Essential (hemorrhagic) thrombocythemia; M81.0 Age-related osteoporosis without current pathological fracture; N18.3 Chronic kidney disease, stage 3 (moderate); R60.9 Edema, unspecified; Y93.89 Activity, other specified; Y92.89 Other specified places as the place of occurrence of the external cause; Y99.8 Other external cause status; Z88.6 Allergy status to analgesic agent; Z99.81 Dependence on supplemental oxygen; Z88.0 Allergy status to penicillin; Z88.2 Allergy status to sulfonamides; E66.9 Obesity, unspecified; Z68.36 Body mass index [BMI] 36.0-36.9, adult; Z71.3 Dietary counseling and surveillance; Z82.49 Family history of ischemic heart disease and other diseases of the circulatory system; Z83.3 Family history of diabetes mellitus
CPT/HCPCS: 32555; 36415; 70450; 71045; 80048; 80053; 80162; 81003; 83540; 83550; 83735; 83880; 84100; 84443; 85025; 93005; 93306; 99285; G0378; J1650